=== PATIENT | female | born 1975 | race Caucasian/White ===

== ENCOUNTER 2017-10-21 22:30 | Inpatient (IN) | payer MEDICAID, OTHER ==
--- NOTE | 2017-10-21 23:04 | ED ---
General Adult HPI - General Chief complaint: Psychiatric Symptoms Stated complaint: mental health Time Seen by Provider: 10/21/17 22:40 Source: patient, RN notes reviewed, old records reviewed Mode of arrival: ambulatory Limitations: no limitations - History of Present Illness Initial comments: This is a 42-year-old female to the ER prevention of psychiatric illness. Psychiatric disease. Patient has history of recent anxiety and suicidal thoughts. No drug or alcohol abuse. Patient has never made suicide attempt in the past - Related Data Home Medications Medication Instructions Recorded Confirmed risperiDONE [RisperDAL] 2 mg PO DAILY 05/04/14 09/07/15 Citalopram Hydrobromide [CeleXA] 20 mg PO DAILY 07/02/14 09/07/15 Atorvastatin Calcium [Lipitor] 20 mg PO HS 09/07/15 09/07/15 Previous Rx's Medication Instructions Recorded Ibuprofen [Motrin] 600 mg PO Q8HR PRN #30 tab 02/22/15 Methocarbamol [Robaxin] 500 mg PO TID PRN #15 tab 02/22/15 Cephalexin [Keflex] 500 mg PO Q6HR #28 cap 09/07/15 Fluconazole [Diflucan] 150 mg PO ONCE #2 tab 09/07/15 Allergies Allergy/AdvReac Type Severity Reaction Status Date / Time No Known Allergies Allergy Verified 10/21/17 23:14 Review of Systems ROS Statement: Those systems with pertinent positive or pertinent negative responses have been documented in the HPI. ROS Other: All systems not noted in ROS Statement are negative. Past Medical History Past Medical History: Diabetes Mellitus History of Any Multi-Drug Resistant Organisms: None Reported Past Surgical History: Section Past Psychological History: Depression Smoking Status: Current every day smoker Past Alcohol Use History: Occasional Past Drug Use History: None Reported General Exam Limitations: no limitations General appearance: alert, in no apparent distress Head exam: Present: atraumatic, normocephalic, normal inspection Eye exam: Present: normal appearance, PERRL, EOMI. Absent: scleral icterus, conjunctival injection, periorbital swelling ENT exam: Present: normal exam, mucous membranes moist Neck exam: Present: normal inspection. Absent: tenderness, meningismus, lymphadenopathy Respiratory exam: Present: normal lung sounds bilaterally. Absent: respiratory distress, wheezes, rales, rhonchi, stridor Cardiovascular Exam: Present: regular rate, normal rhythm, normal heart sounds. Absent: systolic murmur, diastolic murmur, rubs, gallop, clicks GI/Abdominal exam: Present: soft, normal bowel sounds. Absent: distended, tenderness, guarding, rebound, rigid Extremities exam: Present: normal inspection, full ROM, normal capillary refill. Absent: tenderness, pedal edema, joint swelling, calf tenderness Back exam: Present: normal inspection Neurological exam: Present: alert, oriented X3, CN II-XII intact Psychiatric exam: Present: normal affect, normal mood Skin exam: Present: warm, dry, intact, normal color. Absent: rash Course Vital Signs 10/21/17 10/22/17 22:32 02:22 Temperature 97.5 F L 98.2 F Pulse Rate 92 83 Respiratory 16 16 Rate Blood Pressure 152/88 112/68 O2 Sat by Pulse 100 99 Oximetry - Reevaluation(s) Reevaluation #1: 10/21/17 23:03 Patient is medically clear for psychiatric evaluation Medical Decision Making - Medical Decision Making 39 female female the ER for evaluation of psychiatric illness, patient be admitted for psychiatric evaluation and treatment - Lab Data Lab Results 10/21/17 10/22/17 Range/Units 22:45 01:17 POC Glucose (mg/dL) 129 H (75-99) mg/dL POC Glu Paleologist ID Abdullahi Vaughan Urine Color Yellow Urine Appearance Cloudy H (Clear) Urine pH 6.0 (5.0-8.0) Ur Specific [place] 1.018 (1.001-1.035) Urine Protein Trace H (Negative) Urine Glucose (UA) Negative (Negative) Urine Ketones Negative (Negative) Urine Blood Trace H (Negative) Urine Nitrite Negative (Negative) Urine Bilirubin Negative (Negative) Urine Urobilinogen <2.0 (<2.0) mg/dL Ur Leukocyte Esterase Negative (Negative) Urine RBC 3 (0-5) /hpf Urine WBC 2 (0-5) /hpf Ur Squamous Epith Cells 13 H (0-4) /hpf Urine Bacteria Rare H (None) /hpf Urine Mucus Rare H (None) /hpf Urine Opiates Screen Not Detected (NotDetected) Ur Oxycodone Screen Not Detected (NotDetected) Urine Methadone Screen Not Detected (NotDetected) Ur Propoxyphene Screen Not Detected (NotDetected) Ur Barbiturates Screen Not Detected (NotDetected) U Tricyclic Antidepress Not Detected (NotDetected) Ur Phencyclidine Scrn Not Detected (NotDetected) Ur Amphetamines Screen Not Detected (NotDetected) U Methamphetamines Scrn Not Detected (NotDetected) U Benzodiazepines Scrn Not Detected (NotDetected) Urine Cocaine Screen Not Detected (NotDetected) U Marijuana (THC) Screen Not Detected (NotDetected) Disposition Clinical Impression: Acute anxiety, Depression, Suicidal ideation Disposition: TRANSFER TO PSYCH HOSP/UNIT Condition: Fair
[2017-10-21 23:07] LABS: Amphetamine Screen,Urine Not Detected (NotDetected); Appearance,Urine Cloudy (Clear); Bacteria,Urine Rare /hpf; Barbiturate Screen,Urine Not Detected (NotDetected); Benzodiazepines Screen,Urine Not Detected (NotDetected); Bilirubin,Urine Negative (Negative); Blood,Urine Trace (Negative); Cocaine Screen,Urine Not Detected (NotDetected); Color,Urine Yellow; Glucose,Urine (UA) Negative (Negative); Ketones,Urine Negative (Negative); Leukocyte Esterase,Urine Negative (Negative); Methadone Screen, Urine Not Detected (NotDetected); Mucus,Urine Rare /hpf; Nitrite,Urine Negative (Negative); Opiate Screen,Urine Not Detected (NotDetected); Oxycodone Screen, Urine Not Detected (NotDetected); Phencyclidine Screen,Urine Not Detected (NotDetected); Protein,Urine Trace (Negative); RBC,Urine 3 /hpf (0-5); Specific Gravity,Urine 1.018 (1.001-1.035); Squamous Epithelial Cell,Urine 13 /hpf (0-4); Tricyclic Antidepressant,Urine Not Detected (NotDetected); Urn Cannabinoid Scrn Not Detected (NotDetected); Urobilinogen,Urine <2.0 mg/dL (<2.0); WBC,Urine 2 /hpf (0-5)
[2017-10-22 01:20] LABS: Glucose,Whole Blood 129 mg/dL (75-99)
[2017-10-22] MEDS ORDERED: MAGNESIUM HYDROXIDE 2,400 MG/10 ML CUP PO PRN (02:15)
[2017-10-22] MEDS ORDERED: LORazepam 1 MG TAB PO PRN (02:15)
[2017-10-22] MEDS ORDERED: MAG HYDROX/AL HYDROX/SIMETH 30 ML CUP PO PRN (02:15)
[2017-10-22 04:04] VITALS: BMI 26.6
[2017-10-22 08:56] LABS: Basophils # (A) 0.1 k/uL (0-0.2); Basophils % (A) 1 %; Eosinophils # (A) 0.3 k/uL (0-0.7); Eosinophils % (A) 3 %; HCT 46.4 % (34.0-46.0); HGB 15.1 gm/dL (11.4-16.0); Lymphocytes # (A) 3.1 k/uL (1.0-4.8); Lymphocytes % (A) 30 %; MCH 29.6 pg (25.0-35.0); MCHC 32.5 g/dL (31.0-37.0); MCV 91.1 fL (80.0-100.0); Mean Platelet Volume 6.4; Monocytes # (A) 0.4 k/uL (0-1.0); Monocytes % (A) 4 %; Neutrophils # (A) 6.1 k/uL (1.3-7.7); Neutrophils % (A) 60 %; Platelet Count 334 k/uL (150-450); RBC 5.09 m/uL (3.80-5.40); RDW 12.7 % (11.5-15.5); WBC 10.1 k/uL (3.8-10.6)
[2017-10-22 09:14] LABS: ALT 38 U/L (9-52); AST 25 U/L (14-36); Albumin 4.3 g/dL (3.5-5.0); Alkaline Phosphatase 87 U/L (38-126); Anion Gap 13 mmol/L; Blood Urea Nitrogen 13 mg/dL (7-17); Calcium 9.7 mg/dL (8.4-10.2); Carbon Dioxide 22 mmol/L (22-30); Chloride 107 mmol/L (98-107); Glucose 132 mg/dL (74-99); Potassium 4.8 mmol/L (3.5-5.1); Sodium 142 mmol/L (137-145); Total Bilirubin 0.3 mg/dL (0.2-1.3); Total Protein 7.4 g/dL (6.3-8.2)
[2017-10-22] MEDS: NICOTINE 14MG/24HR PATCH TRANSDERM SCH (09:41)
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
[2017-10-22] MEDS: metFORMIN 500 MG TAB PO SCH (14:09)
[2017-10-22] MEDS: GLIMEPIRIDE 4 MG TAB PO SCH (14:09)
--- NOTE | 2017-10-22 14:47 | CONS ---
CONSULTATION DATE OF SERVICE: 10/22/2017 REASON FOR CONSULTATION: Advice regarding diabetes mellitus and other medical issues requested by Psychiatry. HISTORY OF PRESENT ILLNESS: This is a 42-year-old woman with a past medical history of diabetes and depression, being for Dr. Almeida in the [facility], was admitted for psychiatric evaluation. There is no chest pain. No palpitations. No history of headache, loss of consciousness. Occasional cough was reported. PAST MEDICAL HISTORY: Diabetes mellitus type 2, history of depression. MEDICATIONS ARE: Vitamin D2 fifty thousand q.30 days, metformin 1000 mg, Motrin 800 mg q.4 p.r.n. , Amaryl 4 mg q.h.s., Lipitor 10 mg daily, Celexa 20 mg daily. ALLERGIES: None. FAMILY HISTORY: No history of heart disease or strokes in family. SOCIAL HISTORY: History of smoking, no history of alcohol. REVIEW OF SYSTEMS: ENT: No diminished vision. CARDIOVASCULAR: No angina. RESPIRATORY: As mentioned earlier. GI: No nausea. : No dysuria. NERVOUS SYSTEM: No numbness, weakness. PHYSICAL EXAMINATION: The patient is alert and oriented x3, Pulse is 83, blood pressure 112/60, respirations 16, temperature 98.2, pulse ox 99% room air. HEENT: Conjunctivae normal. NECK: No jugular venous distension. RESPIRATORY: Breath sounds diminished at the bases, a few scattered rhonchi. No crackles. ABDOMEN: Soft, nontender. No mass palpable. LEGS: No edema, no swelling. NERVOUS SYSTEM: cranial nerves 2-12 intact. no nystagmus, diplopia. no facial deviation. Higher functions as mentioned earlier, moves all 4 limbs, no focal motor or sensory deficits. no signs of cerebellar dysfunction. ALLERGY/IMMUNOLOGY: As mentioned earlier. HEMATOLOGY: No history of anemia. ENDOCRINE: As mentioned earlier. CONSTITUTIONAL: Negative. DERMATOLOGY; Negative: NERVOUS SYSTEM: No numbness or weakness. PSYCHIATRY: As mentioned earlier. LYMPHATICS: O SKIN: No ulcer, rash or bleeding. LABS: WBC 10.1, hemoglobin 15.1 and glucose 132. ASSESSMENT: 1. Depression. 2. Diabetes mellitus type 2. 3. History of nicotine dependence. RECOMMENDATION: In this 42-year-old woman who presented with multiple medical problems, Will monitor the patient closely. Continue with the current management and resume the metformin and the antidiabetic medications. Accu-Cheks a.c. and at bedtime. I would recommend follow the patient closely and recommend close follow up in the outpatient setting. Thank you for letting us participate in care of this patient. SAMREEN / BHAVESH: [id number] / VIVI
[2017-10-22 17:49] LABS: Glucose,Whole Blood 61 mg/dL (75-99)
[2017-10-22 18:05] LABS: Glucose,Whole Blood 85 mg/dL (75-99)
[2017-10-22] MEDS: INSULIN ASPART 100 UNIT/ML 1 ML 10 ML VIAL SQ SCH ×2 (18:12→22:22)
[2017-10-22 20:09] LABS: Glucose,Whole Blood 77 mg/dL (75-99)
[2017-10-22] MEDS: QUEtiapine 100 MG TAB PO SCH (20:53)
[2017-10-23 02:03] LABS: Cholesterol 219 mg/dL (<200); HDL Cholesterol 48 mg/dL (40-60); LDL Cholesterol,Calculated 131 mg/dL (0-99); Triglycerides 198 mg/dL (<150)
[2017-10-23 06:29] LABS: Glucose,Whole Blood 91 mg/dL (75-99)
[2017-10-23] MEDS: INSULIN ASPART 100 UNIT/ML 1 ML 10 ML VIAL SQ SCH ×4 (08:22→20:29)
[2017-10-23] MEDS: NICOTINE 14MG/24HR PATCH TRANSDERM SCH (09:30)
[2017-10-23] MEDS: GLIMEPIRIDE 4 MG TAB PO SCH (09:31)
[2017-10-23] MEDS: ATORVASTATIN 10 MG TAB PO SCH (09:31)
[2017-10-23] MEDS: metFORMIN 500 MG TAB PO SCH (09:31)
[2017-10-23 12:58] LABS: Glucose,Whole Blood 53 mg/dL (75-99)
[2017-10-23 13:16] LABS: Glucose,Whole Blood 101 mg/dL (75-99)
--- NOTE | 2017-10-23 13:24 | PN ---
PROGRESS NOTE DATE OF SERVICE: 10/23/2017 CHIEF COMPLAINT: The patient was admitted due to depression with thoughts of suicide. She stated "I felt like I had a total breakdown". INTERVAL HISTORY: Patient has been doing fairly well. She had a quiet evening last night. She said she slept better. It is noted that yesterday Dr. Hernández documented that the patient was seen in the morning time and she seemed quite distressed, though by the afternoon, the patient was more verbal. She was not showing psychomotor retardation that was evident in the morning. She was responding more appropriately. The patient herself was stating in the afternoon that she felt better and had less depression. She also stated that suicide thinking had abated. She was started on Seroquel. The patient said she slept fairly well last night and needed to get so aroused in the morning in order to wake up. She has not had change in her general health. She tolerates her psychotropic medications. MENTAL STATUS: Patient gave fair eye contact. Psychomotor activity was a little slowed. Speech was somewhat monotone. She answered questions with brief responses. Her thoughts were clear. Her affect was somewhat blunted. Her mood was quiet. She did not appear to be distressed. ASSESSMENT: I will continue the current diagnosis and treatment plan. We will continue to engage the patient in individual and group therapeutic activities. I discussed treatment issues with the patient. She does have long-term problems with mood disorder. They indicated that at some point in the course of her treatment she might look to get started on antidepressant medication. However, given that she seems to be doing better now and has benefited some from the Seroquel, I would continue medications the same without adding an additional medication. If she continues to progress, I would anticipate her being discharged early in the week and then as part of her followup she could be assessed further for antidepressant therapy. We will continue to focus on stabilization and discharge planning. MMODL / IJN: [id number] /
[2017-10-23 17:33] LABS: Glucose,Whole Blood 73 mg/dL (75-99)
[2017-10-23 19:59] LABS: Glucose,Whole Blood 136 mg/dL (75-99)
[2017-10-23] MEDS: QUEtiapine 100 MG TAB PO SCH (20:14)
[2017-10-24 06:12] LABS: Glucose,Whole Blood 109 mg/dL (75-99)
[2017-10-24] MEDS: INSULIN ASPART 100 UNIT/ML 1 ML 10 ML VIAL SQ SCH ×4 (08:10→20:12)
[2017-10-24] MEDS: ATORVASTATIN 10 MG TAB PO SCH (08:38)
[2017-10-24] MEDS: NICOTINE 14MG/24HR PATCH TRANSDERM SCH (08:38)
[2017-10-24] MEDS: metFORMIN 500 MG TAB PO SCH (08:38)
--- NOTE | 2017-10-24 11:12 | P.PN ---
Progress Note - Text Progress Note Date: 10/24/17 Interval history: The patient was seen in the office. She reports that she slept 7-8 hours last night ,denies any side-effect from Seroquel .She reports racing thoughts,""Foggy",poor concentration ,distracted and poor attention span ,she denies any psychotic features ,denies any suicidal or homicidal ideation. She talked about her one and half year relationship as he is 10 years younger than her ,patient stated "I am trying to please people especially my BF but it is not easy",according to her what triggered current admission is some conflict in relationship Mental status exam: The patient is female she is dressed in her own clothing ,fair grooming ,good eyes contact She demonstrates tangential thinking during the course of our session. At other times she is able to provide linear brief answers. She seems having difficulty to maintain attention She demonstrates no verbal or physical aggressiveness no abnormal involuntary movements. Insight and judgment limited. She reports no suicidal or homicidal ideation intent or plan. She is endorsing no auditory or visual hallucinations. Plan: The patient will continue on Seroquel ,discussed possibility to add [place] as patient is still endorsing racing thoughts ,I am reluctant to increase Seroquel as patient is diabetic ,will check her thyroid and renal function She is encouraged to continue complying with the milieu.Sw to assist in after care individual counseling
[2017-10-24 12:57] LABS: Glucose,Whole Blood 90 mg/dL (75-99)
[2017-10-24 17:36] LABS: Glucose,Whole Blood 107 mg/dL (75-99)
[2017-10-24] MEDS: QUEtiapine 100 MG TAB PO SCH (20:11)
[2017-10-24 20:24] LABS: Glucose,Whole Blood 135 mg/dL (75-99)
[2017-10-25] MEDS: ACETAMINOPHEN TAB 325 MG TAB PO PRN ×2 (07:08→19:48)
[2017-10-25 07:18] LABS: Glucose,Whole Blood 106 mg/dL (75-99)
[2017-10-25] MEDS: INSULIN ASPART 100 UNIT/ML 1 ML 10 ML VIAL SQ SCH ×4 (08:20→21:19)
[2017-10-25] MEDS: NICOTINE 14MG/24HR PATCH TRANSDERM SCH (08:21)
[2017-10-25] MEDS: metFORMIN 500 MG TAB PO SCH (08:21)
[2017-10-25] MEDS: ATORVASTATIN 10 MG TAB PO SCH (08:22)
[2017-10-25] MEDS: LITHIUM CARBONATE ER 450 MG TABLET.ER PO SCH (08:22)
[2017-10-25 12:33] LABS: Glucose,Whole Blood 97 mg/dL (75-99)
--- NOTE | 2017-10-25 14:38 | P.PN ---
Progress Note - Text Progress Note Date: 10/25/17 Interval history: The patient was seen in the office. She reports that she slept 7-8 hours last night ,denies any side-effect from Seroquel .She reports racing thoughts,""Foggy",poor concentration ,distracted ,despite she is denying any psychotic features and focussing about discharge patient seems evasive and guarded ,denies any suicidal or homicidal ideation. Per nursing staff:patient is superficial,guarded and evasive Mental status exam: The patient is female she is dressed in her own clothing ,fair grooming ,good eyes contact She demonstrates tangential thinking during the course of our session. At other times she is able to provide linear brief answers. She seems having difficulty to maintain attention She demonstrates no verbal or physical aggressiveness no abnormal involuntary movements. Insight and judgment limited. She reports no suicidal or homicidal ideation intent or plan. She is endorsing no auditory or visual hallucinations. Plan: Increase Seroquel to 150 mg to eliminate her underlying paranoia , continue [place] same dose She is encouraged to continue complying with the milieu.Sw to assist in collateral information and family meeting with patient BF to evaluate patient basic function level
[2017-10-25 17:13] LABS: Glucose,Whole Blood 122 mg/dL (75-99)
[2017-10-25 19:56] LABS: Glucose,Whole Blood 130 mg/dL (75-99)
[2017-10-25] MEDS: QUEtiapine 50 MG TAB PO SCH (21:19)
[2017-10-26 06:31] LABS: Glucose,Whole Blood 116 mg/dL (75-99)
[2017-10-26] MEDS: INSULIN ASPART 100 UNIT/ML 1 ML 10 ML VIAL SQ SCH ×4 (07:36→20:36)
[2017-10-26] MEDS: NICOTINE 14MG/24HR PATCH TRANSDERM SCH (08:38)
[2017-10-26] MEDS: metFORMIN 500 MG TAB PO SCH (08:39)
[2017-10-26] MEDS: LITHIUM CARBONATE ER 450 MG TABLET.ER PO SCH ×2 (08:39→21:11)
[2017-10-26] MEDS: ATORVASTATIN 10 MG TAB PO SCH (08:39)
--- NOTE | 2017-10-26 12:42 | P.PN ---
Progress Note - Text Progress Note Date: 10/26/17 Interval History: Patient is a 42-year-old female who was seen today and states that she had signed her three-day notice because she feels she is doing well. Patient reports she is no longer depressed and has no current suicidal thoughts. She states she slept 7 hours last night. Patient states that she is no longer having racing thoughts and feels she is doing well. Patient reported no complaints of side effects from her medication and stated that she had taken the lithium and had no difficulty with. Mental Status: Appearance/Attitude: Patient was appropriately dressed, made good eye contact and was cooperative. Behavior: Patient did not display any psychomotor agitation or retardation. Speech/Language: Patient's speech was spontaneous and normal volume and rhythm and she was coherent. Thought Process: Patient was goal-directed, there is no evidence of loose association or flight of ideas and the patient denied she was having racing thoughts. Thought Content: Patient denied auditory or visual hallucinations and no paranoid or delusional ideation was elicited. Patient did report however that she still is having trouble focusing and paying attention but stated she slept 7 hours last night. She states that she wants to leave the hospital because she is returned to her baseline. She reports that she is eating well. Suicidal/Homicidal Ideation: Patient denied any current suicidal or homicidal ideation. Sensorium/Cognition: Patient is alert and oriented to person, place, and time and her recent and remote memory were grossly intact. Patient reported that she still had difficulty focusing and paying attention. Mood/Affect: Patient's mood is not labile and her affect was appropriate Insight/Judgment: Patient's insight and judgment are fair Assessment: Patient was begun on lithium and continued on Seroquel 150 mg at bedtime and she reports no side effects from the medication. She reported she was sleeping well and that her mood was more stable but she continued to have difficulty focusing and concentrating. She denied that her thoughts were racing. Patient states she signed the three-day notice because she is ready to leave the hospital. Plan: Patient and I discussed that her lithium needs to be increased to 4 and 50 mg twice a day for it to be even minimally effective, as well as continue on Seroquel 1 or 50 mg at bedtime to stabilize her mood. The patient was agreeable to retracting her three-day notice and she said she would consider doing so. Patient and I discussed increasing her lithium to target her lack of concentration and focus. Patient and I discussed discharge in the next several days and a lithium level will be obtained.
[2017-10-26 12:52] LABS: Glucose,Whole Blood 96 mg/dL (75-99)
[2017-10-26 17:45] LABS: Glucose,Whole Blood 97 mg/dL (75-99)
[2017-10-26 20:14] LABS: Glucose,Whole Blood 149 mg/dL (75-99)
[2017-10-26] MEDS: QUEtiapine 50 MG TAB PO SCH (21:08)
[2017-10-27 06:31] LABS: Glucose,Whole Blood 123 mg/dL (75-99)
[2017-10-27 06:48] VITALS: BP 111/57; PULSE 71; RESP 14; TEMP 98.6
[2017-10-27] MEDS: INSULIN ASPART 100 UNIT/ML 1 ML 10 ML VIAL SQ SCH (07:31)
[2017-10-27] MEDS: metFORMIN 500 MG TAB PO SCH (08:02)
[2017-10-27] MEDS: ATORVASTATIN 10 MG TAB PO SCH (08:02)
[2017-10-27] MEDS: LITHIUM CARBONATE ER 450 MG TABLET.ER PO SCH (08:03)
[2017-10-27] MEDS: NICOTINE 14MG/24HR PATCH TRANSDERM SCH (08:03)
--- NOTE | 2017-10-27 11:04 | P.DS ---
Providers Date of admission: 10/22/17 02:13 Expected date of discharge: 10/27/17 Attending physician: Shea Hernández MD Consults: 10/22/17 02:15 Consult Physician Routine Consulting Provider: Gabe Nichole Consult Reason/Comments: medical management Do you want consulting provider notified?: Yes, Notify in am Primary care physician: Joanne [facility], [place] Course: Discharge Diagnosis: Bipolar disorder type I, current episode depressed with rapid cycling Reason for Admission: Patient is a 42-year-old female who presented to the emergency room with her family yesterday secondary to increasing depression and suicidal ideation without a plan. Patient states that she "felt like I had a total breakdown, I was crying". Patient states that she's been attending the [facility] and they've been prescribing Celexa 20 mg and Risperdal 2 mg at bedtime and she states that she has been taking these on and off. She states she last took the Celexa several weeks ago and was on it for perhaps a month at a minimum. She discontinued her Risperdal months ago because it was making her sleepy. Patient states that yesterday in the emergency room she was feeling depressed, and states that currently she is feeling much better. In the emergency room the patient was described with psychomotor retardation difficulty responding to questions today she is not showing any evidence of that. Patient states that she was unable to focus when she was in the emergency room and could not respond to questions. Patient currently states that she is feeling much better and no longer having suicidal thoughts. Patient reports problems sleeping prior to coming into the hospital and states she was having suicidal thoughts but had no plan or intent to act. Patient endorses a history of difficulties since the age of 22 and feels that her first treatment was 20 years ago. Patient has had 3 prior admissions here the last being in 2010. Patient was attending [facility] but since 2013 she reports she has been getting her medications from the [facility]. Patient is able to endorse episodes of reid in the past with driving erratically, decreased need for sleep with increased energy as well as racing thoughts, jumping from one idea to another, being impulsive with her use of money and an increased interest in sex she says that this alternates with periods of depression where she has difficulty sleeping and feeling tired unable to focus suicidal ideation and a lack of interest in her activities of daily living. Patient states that these moods flip-flop quite rapidly and states that yesterday she was feeling depressed and now she is feeling fine. Patient has not been compliant with medication and states that she takes the medicines on and off. Patient states that she doesn't think the medications were working but it is difficult to state if they were not as the patient has not been compliant for quite some time. Patient denies any prior history of auditory or visual hallucinations and denies any prior paranoid ideation. Patient currently states she starting to feel better no longer feeling as depressed and states that she is able to focus much better area she states that she slept fairly well here last evening. She reports that she is no longer feeling suicidal. Mental status on Admission: Appearance/Attitude: Patient is appropriately dressed, makes good eye contact and was cooperative. Behavior: Patient did not display any psychomotor agitation or retardation and occasionally during the interview would laugh and smile. Speech/Language: Patient's speech was spontaneous, of normal volume and rhythm and she was coherent Thought Process: Patient is goal-directed there is no evidence of loose association or flight of ideas and no evidence of thought blocking Thought Content: Patient denied auditory or visual hallucinations and no paranoid or delusional ideation was elicited. Patient states that she's been having trouble sleeping and has been feeling depressed and unable to focus or care for her ADLs. Patient states that she was having crying spells before coming to the emergency room and describes herself as having a breakdown. She states currently she is feeling much better. Patient reports that her appetite is good. Suicidal/Homicidal Ideation: Patient denies any current suicidal or homicidal ideation. Sensorium/Cognition: Patient is alert and oriented to person, place, and time and her recent and remote memory are grossly intact. Mood/Affect: Patient's mood is labile, she was quite pleasant and laughing at during the interview and reported her mood is much improved over yesterday when she was feeling depressed and tearful, her affect is appropriate to her mood Insight/Judgment: Patient's insight and judgment are fair Hospital Course: Patient was admitted as a voluntary patient, routine laboratory studies and medical consultation were obtained. The patient also was ordered group and activity therapy as well as placed on routine observation. Patient was observed to be psychomotor retarded to some degree on admission and depressed later when I interviewed her, the patient reported that her mood had improved, she was having racing thoughts and she states that she cycles between depression and manic symptoms. Patient and I discussed her medications and she reported a good response to Seroquel in the past and wish to retry this and so was begun on Seroquel titrated to a dose of 150 mg at bedtime. Patient was also started on lithium which was titrated to a dose of 450 mg twice a day. Patient reported that she was improving and noticed that her mood was stabilizing and she was no longer going between feeling depressed and feeling manic. Patient was not restarted on any antidepressants to prevent the rapid cycling that she had been experiencing. She reported she was sleeping well and eating well. A she and states that her thoughts were organized and she was no longer having racing thoughts. Patient reported no side effects from the medication and felt that she was stable to return home. Patient was also maintained on her medications for her diabetes as well as her Lipitor. Her lithium level on 450 mg twice a day was 0.5. Allergies No Known Allergies Allergy (Verified 10/22/17 08:58) Laboratory Last Values WBC 10.1 k/uL (3.8-10.6) 10/22/17 08:34 RBC 5.09 m/uL (3.80-5.40) 10/22/17 08:34 Hgb 15.1 gm/dL (11.4-16.0) 10/22/17 08:34 Hct 46.4 % (34.0-46.0) H 10/22/17 08:34 MCV 91.1 fL (80.0-100.0) 10/22/17 08:34 MCH 29.6 pg (25.0-35.0) 10/22/17 08:34 MCHC 32.5 g/dL (31.0-37.0) 10/22/17 08:34 RDW 12.7 % (11.5-15.5) 10/22/17 08:34 Plt Count 334 k/uL (150-450) 10/22/17 08:34 Neutrophils % 60 % 10/22/17 08:34 Lymphocytes % 30 % 10/22/17 08:34 Monocytes % 4 % 10/22/17 08:34 Eosinophils % 3 % 10/22/17 08:34 Basophils % 1 % 10/22/17 08:34 Neutrophils # 6.1 k/uL (1.3-7.7) 10/22/17 08:34 Lymphocytes # 3.1 k/uL (1.0-4.8) 10/22/17 08:34 Monocytes # 0.4 k/uL (0-1.0) 10/22/17 08:34 Eosinophils # 0.3 k/uL (0-0.7) 10/22/17 08:34 Basophils # 0.1 k/uL (0-0.2) 10/22/17 08:34 Sodium 142 mmol/L (137-145) 10/22/17 08:34 Potassium 4.8 mmol/L (3.5-5.1) 10/22/17 08:34 Chloride 107 mmol/L (98-107) 10/22/17 08:34 Carbon Dioxide 22 mmol/L (22-30) 10/22/17 08:34 Anion Gap 13 mmol/L 10/22/17 08:34 BUN 13 mg/dL (7-17) 10/22/17 08:34 Creatinine 0.60 mg/dL (0.52-1.04) 10/22/17 08:34 Est GFR (MDRD) Af Amer >60 (>60 ml/min/1.73 sqM) 10/22/17 08:34 Est GFR (MDRD) Non-Af >60 (>60 ml/min/1.73 sqM) 10/22/17 08:34 Glucose 132 mg/dL (74-99) H 10/22/17 08:34 POC Glucose (mg/dL) 123 mg/dL (75-99) H 10/27/17 06:30 POC Glu [facility] Outreach Specialist ID Brian Felder 10/27/17 06:[address] Glu mg/dL 126 10/22/17 08:34 Hemoglobin A1c 6.0 % (4.0-6.0) 10/22/17 08:34 Calcium 9.7 mg/dL (8.4-10.2) 10/22/17 08:34 Total Bilirubin 0.3 mg/dL (0.2-1.3) 10/22/17 08:34 AST 25 U/L (14-36) 10/22/17 08:34 ALT 38 U/L (9-52) 10/22/17 08:34 Alkaline Phosphatase 87 U/L (38-126) 10/22/17 08:34 Total Protein 7.4 g/dL (6.3-8.2) 10/22/17 08:34 Albumin 4.3 g/dL (3.5-5.0) 10/22/17 08:34 Triglycerides 198 mg/dL (<150) H 10/22/17 08:34 Cholesterol 219 mg/dL (<200) H 10/22/17 08:34 LDL Cholesterol, Calc 131 mg/dL (0-99) H 10/22/17 08:34 HDL Cholesterol 48 mg/dL (40-60) 10/22/17 08:34 TSH 1.500 mIU/L (0.465-4.680) 10/22/17 08:34 Urine Color Yellow 10/21/17 22:45 Urine Appearance Cloudy (Clear) H 10/21/17 22:45 Urine pH 6.0 (5.0-8.0) 10/21/17 22:45 Ur Specific [place] 1.018 (1.001-1.035) 10/21/17 22:45 Urine Protein Trace (Negative) H 10/21/17 22:45 Urine Glucose (UA) Negative (Negative) 10/21/17 22:45 Urine Ketones Negative (Negative) 10/21/17 22:45 Urine Blood Trace (Negative) H 10/21/17 22:45 Urine Nitrite Negative (Negative) 10/21/17 22:45 Urine Bilirubin Negative (Negative) 10/21/17 22:45 Urine Urobilinogen <2.0 mg/dL (<2.0) 10/21/17 22:45 Ur Leukocyte Esterase Negative (Negative) 10/21/17 22:45 Urine RBC 3 /hpf (0-5) 10/21/17 22:45 Urine WBC 2 /hpf (0-5) 10/21/17 22:45 Ur Squamous Epith Cells 13 /hpf (0-4) H 10/21/17 22:45 Urine Bacteria Rare /hpf (None) H 10/21/17 22:45 Urine Mucus Rare /hpf (None) H 10/21/17 22:45 Urine Opiates Screen Not Detected (NotDetected) 10/21/17 22:45 Ur Oxycodone Screen Not Detected (NotDetected) 10/21/17 22:45 Urine Methadone Screen Not Detected (NotDetected) 10/21/17 22:45 Ur Propoxyphene Screen Not Detected (NotDetected) 10/21/17 22:45 Ur Barbiturates Screen Not Detected (NotDetected) 10/21/17 22:45 U Tricyclic Antidepress Not Detected (NotDetected) 10/21/17 22:45 Ur Phencyclidine Scrn Not Detected (NotDetected) 10/21/17 22:45 Ur Amphetamines Screen Not Detected (NotDetected) 10/21/17 22:45 U Methamphetamines Scrn Not Detected (NotDetected) 10/21/17 22:45 U Benzodiazepines Scrn Not Detected (NotDetected) 10/21/17 22:45 [place] 0.5 mmol/L 10/27/17 08:30 Urine Cocaine Screen Not Detected (NotDetected) 10/21/17 22:45 U Marijuana (THC) Screen Not Detected (NotDetected) 10/21/17 22:45 Discharge Mental Status: Appearance/Attitude: Patient was appropriately dressed and groomed, made good eye contact and was cooperative. Behavior: Patient did not display any psychomotor agitation or retardation. Speech/Language: Patient's speech was spontaneous and of normal volume and rhythm and she was coherent Thought Process: Patient was goal-directed there is no evidence of loose association or flight of ideas and she denied racing thoughts. Thought Content: Patient denied auditory or visual hallucinations and no delusions or paranoid ideation were elicited. Patient states that she is no longer having racing thoughts, states that she feels more organized and is not having difficulty responding to questions. Patient states that she slept about 7 hours last night and her appetite is good. She reported no side effects from the medication. Suicidal/Homicidal Ideation: Patient denied current suicidal or homicidal ideation. Sensorium/Cognition: Patient is alert and oriented to person, place, time and her recent and remote memory were grossly intact. Patient states that she is able to focus and concentrate without difficulty. Mood/Affect: Patient reports her mood is stable and euthymic and her affect is appropriate. Insight/Judgment: Patient's insight and judgment are fair. Risk Assessment: Patient's risk for self harm is low Discharge Plan: Patient will return home to live with her mother and daughter, she is looking for work. Patient will continue on Seroquel 150 mg at bedtime and lithium 450 mg twice a day with a serum level of 0.5. Patient and I discussed the side effects of lithium, symptoms of lithium toxicity and she was encouraged to be compliant with her medications. Patient was also encouraged to be compliant with follow-up treatment at [facility]. Patient will also follow-up with primary care physician regarding her medical problems. Patient Condition at Discharge: Stable Plan - Discharge Summary Discharge Rx Participant: No New Discharge Prescriptions: New [place] Carbonate ER [Lithobid] 450 mg PO BID #28 tablet.er Nicotine 14Mg/24Hr Patch [Habitrol] 1 patch TRANSDERM DAILY #28 patch QUEtiapine FUMARATE [SEROquel] 150 mg PO HS #7 tab Continue Ergocalciferol [Vitamin D2 (DRISDOL)] 50,000 unit PO Q30D metFORMIN HCL 1,000 mg PO DAILY Ibuprofen [Motrin] 800 mg PO QID PRN PRN Reason: Pain Atorvastatin [Lipitor] 10 mg PO DAILY #14 tab Glimepiride [Amaryl] 4 mg PO AC-BRKFST #14 tab Discontinued Citalopram Hydrobromide [CeleXA] 20 mg PO DAILY Discharge Medication List Ergocalciferol [Vitamin D2 (DRISDOL)] 50,000 unit PO Q30D 10/22/17 [History] Ibuprofen [Motrin] 800 mg PO QID PRN 10/22/17 [History] metFORMIN HCL 1,000 mg PO DAILY 10/22/17 [History] Atorvastatin [Lipitor] 10 mg PO DAILY #14 tab 10/27/17 [Rx] Glimepiride [Amaryl] 4 mg PO AC-BRKFST #14 tab 10/27/17 [Rx] [place] Carbonate ER [Lithobid] 450 mg PO BID #28 tablet.er 10/27/17 [Rx] Nicotine 14Mg/24Hr Patch [Habitrol] 1 patch TRANSDERM DAILY #28 patch 10/27/17 [ Rx] QUEtiapine FUMARATE [SEROquel] 150 mg PO HS #7 tab 10/27/17 [Rx] Follow up Appointment(s)/Referral(s): [facility] [Outside] - 1 Week (Please complete walk-in intake within 48 hours of hospital discharge. Hours: Tu- 1030-5 Wed, - 830-3) Joanne Almeida MD [Primary Care Provider] - 1-2 days Patient Instructions/Handouts: Depression (GEN), Suicide Prevention for Adults (GEN), Anxiety (GEN) Activity/Diet/Wound Care/Special Instructions: Activity and diet as tolerated. Avoid the use of street drugs and alcohol. Take all medications as prescribed. When you are in need of refills on your medications please contact your medical provider and/or outpatient psychiatrist to have this done. Please go to scheduled outpatient appointment for aftercare treatment. If symptoms return or become worse call the crisis line at [phone] and/or go to the nearest emergency room for an evaluation.
[2017-11-04] MEDS ORDERED: ERGOCALCIFEROL 50,000 UNIT CAP PO SCH (09:00)
== END 2017-10-27 12:53 | disposition home or self-care (01) | DRG 885 ==
LOC: EC 22:30 → 3MHU 10-22 02:13
PROVIDERS: ADMIT Psychiatry & Neurology Psychiatry; ATTEND Psychiatry & Neurology Psychiatry
DX: F31.9 Bipolar disorder, unspecified (principal); E11.9 Type 2 diabetes mellitus without complications; E78.5 Hyperlipidemia, unspecified; F17.200 Nicotine dependence, unspecified, uncomplicated; F41.9 Anxiety disorder, unspecified; Z79.899 Other long term (current) drug therapy; Z91.14 Patient's other noncompliance with medication regimen; Z79.84 Long term (current) use of oral hypoglycemic drugs
CPT/HCPCS: 36415; 80053; 80061; 80178; 80306; 81001; 82075; 83036; 84443; 85025; 99285

== ENCOUNTER 2018-01-31 05:21 | Emergency (ER) | payer MEDICAID, OTHER ==
[2018-01-31 05:38] VITALS: BP 123/59; PULSE 92; RESP 20; TEMP 98.9
--- NOTE | 2018-01-31 06:00 | ED ---
ENT HPI - General Chief complaint: Dental/Oral Stated complaint: Dental Pain Time Seen by Provider: 01/31/18 05:44 Source: patient Mode of arrival: ambulatory Limitations: no limitations - History of Present Illness Initial comments: 's patient is a 42-year-old woman who presents with right mandibular dental pain that is been going on for she believes a bit over a week. She states that she called her dentist but will not be seen there until the following week. She states she has tried Tylenol which is only giving a little bit of relief. The patient denies any difficulty with breathing or any difficulty with swallowing. She also has noted a little bit of swelling adjacent to the mandible. No neck pain. MD complaint: tooth pain Onset/Timin -: week(s) Location: other (Right mandibular) Severity: severe Quality: aching Consistency: constant Improves with: none Worsens with: eating Context-Epistaxis: history of similar Context- Dental: history of dental caries - Related Data Home Medications Medication Instructions Recorded Confirmed Citalopram Hydrobromide [CeleXA] 20 mg PO DAILY 01/31/18 01/31/18 risperiDONE [RisperDAL] 2 mg PO DAILY 01/31/18 01/31/18 Previous Rx's Medication Instructions Recorded Acetaminophen-Codeine 300-30mg 1 tab PO Q4H PRN #15 tablet 01/31/18 [Tylenol w/codeine #3] Ibuprofen [Motrin] 600 mg PO Q8HR PRN #20 tab 01/31/18 Penicillin V Potassium [Pen Vee K] 500 mg PO QID #28 tablet 01/31/18 Allergies Allergy/AdvReac Type Severity Reaction Status Date / Time No Known Allergies Allergy Verified 10/22/17 08:58 Review of Systems ROS Statement: Those systems with pertinent positive or pertinent negative responses have been documented in the HPI. ROS Other: All systems not noted in ROS Statement are negative. Constitutional: Denies: fever, chills Eyes: Denies: eye pain, vision change ENT: Denies: ear pain, throat pain, hearing loss Respiratory: Denies: cough, dyspnea Cardiovascular: Denies: chest pain, palpitations Skin: Denies: rash Neurological: Denies: headache Past Medical History Past Medical History: Diabetes Mellitus History of Any Multi-Drug Resistant Organisms: None Reported Past Surgical History: Section Past Psychological History: Depression Smoking Status: Current every day smoker Past Alcohol Use History: Rare Past Drug Use History: None Reported General Exam Limitations: no limitations General appearance: alert, in no apparent distress Head exam: Present: atraumatic, normocephalic Eye exam: Present: normal appearance, PERRL, EOMI. Absent: scleral icterus, conjunctival injection, nystagmus ENT exam: Present: mucous membranes moist, other (Dental caries. Small amount of swelling adjacent to the right mandibular. There is no definite abscess. There is no sign or symptom of [place] angina) Neck exam: Present: normal inspection, full ROM, other (No neck fullness. ). Absent: tenderness, meningismus, lymphadenopathy Respiratory exam: Present: normal lung sounds bilaterally. Absent: respiratory distress, wheezes, rales, rhonchi, stridor Cardiovascular Exam: Present: regular rate, normal rhythm, normal heart sounds. Absent: systolic murmur, diastolic murmur, rubs, gallop Neurological exam: Present: alert Skin exam: Present: warm, dry, intact, normal color. Absent: rash Course Vital Signs 01/31/18 05:34 Temperature 98.9 F Pulse Rate 92 Respiratory 20 Rate Blood Pressure 123/59 O2 Sat by Pulse 96 Oximetry Disposition Clinical Impression: Toothache, Dental caries Disposition: HOME SELF-CARE Condition: Good Instructions: Dental Caries (ED), Toothache (ED) Prescriptions: Acetaminophen-Codeine 300-30mg [Tylenol w/codeine #3] 1 tab PO Q4H PRN #15 tablet PRN Reason: Pain Ibuprofen [Motrin] 600 mg PO Q8HR PRN #20 tab PRN Reason: Pain Penicillin V Potassium [Pen Vee K] 500 mg PO QID #28 tablet Is patient prescribed a controlled substance at d/c from ED?: Yes When asked, does pt state using other controlled substances?: No If prescribed controlled substance>3 days was MAPS reviewed?: Prescribed <3 Days If opioid is for acute pain is fill amount 7 days or less?: Yes If Rx opioid, was Start Talking consent form obtained?: Yes Referrals: Branden Caro MD [Primary Care Provider] - 1-2 days
[2018-01-31] MEDS ORDERED: PENICILLIN V POTASSIUM 250 MG TAB PO STA (06:02)
[2018-01-31] MEDS ORDERED: IBUPROFEN 600 MG TAB PO STA (06:02)
== END 2018-01-31 06:35 | disposition home or self-care (01) ==
LOC: EC 05:21
DX: K02.9 Dental caries, unspecified (principal); F32.9 Major depressive disorder, single episode, unspecified; F17.200 Nicotine dependence, unspecified, uncomplicated; Z79.899 Other long term (current) drug therapy
CPT/HCPCS: 99282

== ENCOUNTER 2018-03-14 20:15 | Emergency (ER) | payer OTHER ==
[2018-03-14 20:39] VITALS: BP 121/72; PULSE 87; RESP 16; TEMP 98.4
[2018-03-14 21:17] LABS: Appearance,Urine Cloudy (Clear); Bacteria,Urine Rare /hpf; Bilirubin,Urine Negative (Negative); Blood,Urine Moderate (Negative); Color,Urine Yellow; Glucose,Urine (UA) Trace (Negative); Ketones,Urine Trace (Negative); Leukocyte Esterase,Urine Large (Negative); Mucus,Urine Rare /hpf; Nitrite,Urine Negative (Negative); Protein,Urine 1+ (Negative); RBC,Urine 58 /hpf (0-5); Specific Gravity,Urine 1.022 (1.001-1.035); Squamous Epithelial Cell,Urine 5 /hpf (0-4); WBC,Urine >182 /hpf (0-5)
--- NOTE | 2018-03-14 21:54 | ED ---
Recheck HPI - General Chief Complaint: Recheck/Abnormal Lab/Rx Stated Complaint: poss kidney infection Time Seen by Provider: 03/14/18 20:45 Source: patient, RN notes reviewed, old records reviewed Mode of arrival: ambulatory Limitations: no limitations - History of Present Illness Initial Comments: 42-year-old female presents emergency Department chief complaint of medication refill and dysuria. She reports dysuria for the past few days. Denies any back pain. No fevers or chills. Patient had no specific abdominal pain. Patient reports she's had history of UTIs in the past and she's been having dysuria feel similar to previous UTIs. She also states that she's been out of her medication for 1 week. She takes Adderall Celexa and Seroquel. - Related Data Home Medications Medication Instructions Recorded Confirmed Citalopram Hydrobromide [CeleXA] 20 mg PO DAILY 01/31/18 03/14/18 risperiDONE [RisperDAL] 2 mg PO DAILY 01/31/18 03/14/18 Previous Rx's Medication Instructions Recorded Ciprofloxacin HCl [Cipro] 500 mg PO Q12HR 7 Days tab 03/14/18 Citalopram Hydrobromide [CeleXA] 20 mg PO DAILY #7 tablet 03/14/18 risperiDONE [RisperDAL] 2 mg PO DAILY #5 tab 03/14/18 Allergies Allergy/AdvReac Type Severity Reaction Status Date / Time No Known Allergies Allergy Verified 03/14/18 20:39 Review of Systems ROS Statement: Those systems with pertinent positive or pertinent negative responses have been documented in the HPI. ROS Other: All systems not noted in ROS Statement are negative. Past Medical History Past Medical History: Diabetes Mellitus History of Any Multi-Drug Resistant Organisms: None Reported Past Surgical History: Section Past Psychological History: Depression Smoking Status: Current every day smoker Past Alcohol Use History: Rare Past Drug Use History: None Reported General Exam - General Exam Comments Initial Comments: Well-appearing 42-year-old female. Alert and oriented. No significant distress. General: Well appearing, well nourished, in no distress. Oriented x 3, normal mood, flat affect. Ambulating without difficulty. Skin: Good turgor, no rash, unusual bruising or prominent lesions Hair: Normal texture and distribution. HEENT: Head: Normocephalic, atraumatic, no visible or palpable masses, depressions, or scaring. Eyes: Visual acuity intact, conjunctiva clear, sclera non-icteric, EOM intact, PERRL. Ears: EACs clear, TMs translucent & cone of light visualized. hearing intact. Nose: No external lesions, mucosa non-inflamed, septum and turbinates normal Mouth: Mucous membranes moist, no mucosal lesions. Teeth/Gums: No obvious caries or periodontal disease. No gingival inflammation or significant resorption. Pharynx: Mucosa non-inflamed, no tonsillar hypertrophy or exudate Neck: Supple, without lesions, bruits, or adenopathy, thyroid non-enlarged and non-tender Heart: No cardiomegaly or thrills; regular rate and rhythm, no murmur or gallop Lungs: Clear to auscultation and percussion Abdomen: Bowel sounds normal, no tenderness, organomegaly, masses, or hernia Back: Spine normal without deformity or tenderness, no CVA tenderness Extremities: No amputations or deformities, cyanosis, edema or varicosities, peripheral pulses intact Musculoskeletal: Normal gait and station. No misalignment, asymmetry, crepitation, defects, tenderness, masses, effusions, decreased range of motion, instability, atrophy or abnormal strength or tone in the head, neck, spine, ribs , pelvis or extremities. Neurologic: CN 2-12 normal. Sensation to pain, touch, and proprioception normal. DTRs normal in upper and lower extremities. No pathologic reflexes. Psychiatric: Oriented X3, has a flat affect. Limitations: no limitations Course Vital Signs 03/14/18 20:33 Temperature 98.4 F Pulse Rate 87 Respiratory 16 Rate Blood Pressure 121/72 O2 Sat by Pulse 97 Oximetry Medical Decision Making - Medical Decision Making [id number] female presents emergency room with dysuria and complains of needing a medication refill. Patient's urinalysis positive worsening infection. No CVA tenderness. Vital signs are stable. The simultaneous the Patient out patiently for cystitis. I also will give her referral for a few days of Celexa and risperidone. I discussed on refill her Adderall she receives as control substance from PCP. Patient agrees. All questions answered return parameters were discussed. - Lab Data Lab Results 03/14/18 Range/Units 20:53 Urine Color Yellow Urine Appearance Cloudy H (Clear) Urine pH 6.0 (5.0-8.0) Ur Specific [place] 1.022 (1.001-1.035) Urine Protein 1+ H (Negative) Urine Glucose (UA) Trace H (Negative) Urine Ketones Trace H (Negative) Urine Blood Moderate H (Negative) Urine Nitrite Negative (Negative) Urine Bilirubin Negative (Negative) Urine Urobilinogen 2.0 (<2.0) mg/dL Ur Leukocyte Esterase Large H (Negative) Urine RBC 58 H (0-5) /hpf Urine WBC >182 H (0-5) /hpf Ur Squamous Epith Cells 5 H (0-4) /hpf Urine Bacteria Rare H (None) /hpf Urine Mucus Rare H (None) /hpf Disposition Clinical Impression: UTI (urinary tract infection), Medication refill Disposition: HOME SELF-CARE Condition: Good Instructions: Dysuria (ED), Medicine Refill (ED) Additional Instructions: Patient is follow-up with primary care physician for prescription for Adderall. Call tomorrow for further refills. Take antibiotics as prescribed. Prescriptions: Ciprofloxacin HCl [Cipro] 500 mg PO Q12HR 7 Days tab Citalopram Hydrobromide [CeleXA] 20 mg PO DAILY #7 tablet risperiDONE [RisperDAL] 2 mg PO DAILY #5 tab Is patient prescribed a controlled substance at d/c from ED?: Yes When asked, does pt state using other controlled substances?: No If prescribed controlled substance>3 days was MAPS reviewed?: Prescribed <3 Days If opioid is for acute pain is fill amount 7 days or less?: No If Rx opioid, was Start Talking consent form obtained?: No Referrals: Branden Caro MD [Primary Care Provider] - 1-2 days Time of Disposition: 21:54
[2018-03-14] MEDS ORDERED: CIPROFLOXACIN HCL 500 MG TAB PO STA (22:02)
== END 2018-03-14 22:12 | disposition home or self-care (01) ==
LOC: EC 20:15
DX: N39.0 Urinary tract infection, site not specified (principal); Z76.0 Encounter for issue of repeat prescription; F32.9 Major depressive disorder, single episode, unspecified; F17.200 Nicotine dependence, unspecified, uncomplicated; Z79.899 Other long term (current) drug therapy
CPT/HCPCS: 81001; 87086; 99284

== ENCOUNTER 2018-07-28 14:29 | Inpatient (IN) | payer OTHER ==
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
--- NOTE | 2018-07-28 15:15 | XR ---
EXAMINATION TYPE: XR chest 1V portable DATE OF EXAM: 07/28/2018 COMPARISON: NONE HISTORY: Chest pain TECHNIQUE: Single frontal view of the chest is obtained. FINDINGS: Patchy left perihilar density may reflect pneumonic infiltrate. Correlate clinically. The cardiac silhouette size is within normal limits. The osseous structures are intact. IMPRESSION: 1. Patchy left perihilar density may reflect pneumonic infiltrate. Correlate clinically.
[2018-07-28 16:21] LABS: ALT 20 U/L (9-52); AST 20 U/L (14-36); Albumin 3.7 g/dL (3.5-5.0); Alkaline Phosphatase 75 U/L (38-126); Anion Gap 10 mmol/L; Blood Urea Nitrogen 9 mg/dL (7-17); Calcium 9.2 mg/dL (8.4-10.2); Carbon Dioxide 22 mmol/L (22-30); Chloride 109 mmol/L (98-107); Glucose 118 mg/dL (74-99); Potassium 4.2 mmol/L (3.5-5.1); Sodium 141 mmol/L (137-145); Total Bilirubin 0.3 mg/dL (0.2-1.3); Total Protein 6.5 g/dL (6.3-8.2)
[2018-07-28 16:22] LABS: Basophils # (A) 0.1 k/uL (0-0.2); Basophils % (A) 1 %; Eosinophils # (A) 0.2 k/uL (0-0.7); Eosinophils % (A) 1 %; HCT 42.7 % (34.0-46.0); HGB 14.1 gm/dL (11.4-16.0); Lymphocytes # (A) 3.3 k/uL (1.0-4.8); Lymphocytes % (A) 25 %; MCHC 32.9 g/dL (31.0-37.0); MCV 88.1 fL (80.0-100.0); Mean Platelet Volume 6.5; Monocytes # (A) 0.6 k/uL (0-1.0); Monocytes % (A) 5 %; Neutrophils # (A) 8.7 k/uL (1.3-7.7); Neutrophils % (A) 67 %; Platelet Count 287 k/uL (150-450); RBC 4.85 m/uL (3.80-5.40); WBC 13.1 k/uL (3.8-10.6)
[2018-07-28 16:41] LABS: Amphetamine Screen,Urine Not Detected (NotDetected); Barbiturate Screen,Urine Not Detected (NotDetected); Benzodiazepines Screen,Urine Not Detected (NotDetected); Cocaine Screen,Urine Not Detected (NotDetected); Methadone Screen, Urine Not Detected (NotDetected); Opiate Screen,Urine Not Detected (NotDetected); Oxycodone Screen, Urine Not Detected (NotDetected); Phencyclidine Screen,Urine Not Detected (NotDetected); Tricyclic Antidepressant,Urine Not Detected (NotDetected); Urn Cannabinoid Scrn Not Detected (NotDetected)
[2018-07-28 16:52] LABS: Appearance,Urine Clear (Clear); Bilirubin,Urine Negative (Negative); Blood,Urine Negative (Negative); Color,Urine Light Yellow; Glucose,Urine (UA) Negative (Negative); Ketones,Urine Negative (Negative); Leukocyte Esterase,Urine Negative (Negative); Nitrite,Urine Negative (Negative); PH, Urine 6.5 (5.0-8.0); Protein,Urine Negative (Negative); Urobilinogen,Urine <2.0 mg/dL (<2.0)
[2018-07-28] MEDS ORDERED: ACETAMINOPHEN TAB 325 MG TAB PO PRN (18:11)
[2018-07-28] MEDS ORDERED: MAG HYDROX/AL HYDROX/SIMETH 30 ML CUP PO PRN (18:11)
[2018-07-28] MEDS ORDERED: LORazepam 1 MG TAB PO PRN (18:11)
[2018-07-28] MEDS ORDERED: ZIPRASIDONE 20 MG VIAL IM PRN (18:11)
[2018-07-28] MEDS ORDERED: MAGNESIUM HYDROXIDE 2,400 MG/10 ML CUP PO PRN (18:11)
[2018-07-28 18:39] VITALS: BMI 27.5
[2018-07-28] MEDS: NICOTINE 14MG/24HR PATCH TRANSDERM SCH (20:36)
[2018-07-29] MEDS: NICOTINE 14MG/24HR PATCH TRANSDERM SCH (08:43)
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
[2018-07-29 10:02] LABS: Basophils # (A) 0.1 k/uL (0-0.2); Basophils % (A) 0 %; Eosinophils # (A) 0.3 k/uL (0-0.7); Eosinophils % (A) 2 %; HCT 43.3 % (34.0-46.0); HGB 14.4 gm/dL (11.4-16.0); Lymphocytes # (A) 2.5 k/uL (1.0-4.8); Lymphocytes % (A) 18 %; MCH 29.3 pg (25.0-35.0); MCHC 33.2 g/dL (31.0-37.0); MCV 88.3 fL (80.0-100.0); Mean Platelet Volume 6.6; Monocytes # (A) 0.4 k/uL (0-1.0); Monocytes % (A) 3 %; Neutrophils # (A) 10.8 k/uL (1.3-7.7); Neutrophils % (A) 76 %; Platelet Count 298 k/uL (150-450); RDW 12.8 % (11.5-15.5); WBC 14.3 k/uL (3.8-10.6)
[2018-07-29 10:17] LABS: ALT 25 U/L (9-52); AST 18 U/L (14-36); Albumin 3.7 g/dL (3.5-5.0); Alkaline Phosphatase 79 U/L (38-126); Anion Gap 6 mmol/L; Bilirubin, Delta 0.1 mg/dL (0.0-0.2); Bilirubin,Unconjugated 0.2 mg/dL (0.0-1.1); Blood Urea Nitrogen 10 mg/dL (7-17); Calcium 9.4 mg/dL (8.4-10.2); Carbon Dioxide 24 mmol/L (22-30); Chloride 109 mmol/L (98-107); Cholesterol 234 mg/dL (<200); Glucose 155 mg/dL (74-99); HDL Cholesterol 33 mg/dL (40-60); Potassium 4.7 mmol/L (3.5-5.1); Sodium 139 mmol/L (137-145); Total Bilirubin 0.3 mg/dL (0.2-1.3); Total Protein 6.5 g/dL (6.3-8.2); Triglycerides 422 mg/dL (<150)
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
[2018-07-29 19:59] LABS: Hemoglobin A1C 6.5 % (4.0-6.0)
[2018-07-29] MEDS ORDERED: lamoTRIgine 25 MG TAB PO SCH (21:00)
[2018-07-29] MEDS ORDERED: PALIPERIDONE 3 MG TAB.ER.24 PO SCH (21:00)
[2018-07-29] MEDS: cloNIDine HCL 0.1 MG TAB PO SCH (21:09)
[2018-07-30] MEDS: NICOTINE 14MG/24HR PATCH TRANSDERM SCH (08:52)
[2018-07-30] MEDS: cloNIDine HCL 0.1 MG TAB PO SCH ×2 (08:53→20:37)
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
[2018-07-30] MEDS: lamoTRIgine 25 MG TAB PO SCH (20:37)
[2018-07-30] MEDS: PALIPERIDONE 6 MG TAB.ER.24 PO SCH (20:37)
[2018-07-31] MEDS: NICOTINE 14MG/24HR PATCH TRANSDERM SCH (07:47)
[2018-07-31] MEDS: cloNIDine HCL 0.1 MG TAB PO SCH ×2 (07:48→20:34)
[2018-07-31] MEDS: metFORMIN 500 MG TAB PO SCH (07:48)
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
[2018-07-31] MEDS: PALIPERIDONE 6 MG TAB.ER.24 PO SCH (20:35)
[2018-07-31] MEDS: lamoTRIgine 25 MG TAB PO SCH (20:35)
[2018-08-01] MEDS: NICOTINE 14MG/24HR PATCH TRANSDERM SCH (07:40)
[2018-08-01] MEDS: metFORMIN 500 MG TAB PO SCH (07:40)
[2018-08-01] MEDS: cloNIDine HCL 0.1 MG TAB PO SCH ×2 (07:40→20:08)
[2018-08-01 14:51] LABS: Appearance,Urine Clear (Clear); Bilirubin,Urine Negative (Negative); Blood,Urine Small (Negative); Color,Urine Yellow; Glucose,Urine (UA) Negative (Negative); Ketones,Urine Negative (Negative); Leukocyte Esterase,Urine Negative (Negative); Mucus,Urine Rare /hpf; Nitrite,Urine Negative (Negative); PH, Urine 5.5 (5.0-8.0); Protein,Urine Negative (Negative); RBC,Urine 5 /hpf (0-5); Squamous Epithelial Cell,Urine 1 /hpf (0-4); Urobilinogen,Urine <2.0 mg/dL (<2.0); WBC,Urine <1 /hpf (0-5)
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
[2018-08-01] MEDS: lamoTRIgine 25 MG TAB PO SCH (20:08)
[2018-08-01] MEDS: PALIPERIDONE 6 MG TAB.ER.24 PO SCH (20:09)
[2018-08-02] MEDS: NICOTINE 14MG/24HR PATCH TRANSDERM SCH (08:57)
[2018-08-02] MEDS: metFORMIN 500 MG TAB PO SCH (08:57)
[2018-08-02] MEDS: cloNIDine HCL 0.1 MG TAB PO SCH ×2 (08:58→19:57)
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
[2018-08-02] MEDS ORDERED: LURASIDONE 20 MG TAB PO SCH (17:00)
[2018-08-02] MEDS ORDERED: lamoTRIgine 100 MG TAB PO SCH (21:00)
[2018-08-03] MEDS: NICOTINE 14MG/24HR PATCH TRANSDERM SCH (08:15)
[2018-08-03] MEDS: metFORMIN 500 MG TAB PO SCH (08:15)
[2018-08-03] MEDS: cloNIDine HCL 0.1 MG TAB PO SCH ×2 (08:16→20:23)
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
[2018-08-03] MEDS ORDERED: lamoTRIgine 100 MG TAB PO SCH (21:00)
[2018-08-03] MEDS ORDERED: HALOPERIDOL 1 MG TAB PO SCH (21:00)
[2018-08-04 07:13] VITALS: TEMP 98.2
[2018-08-04] MEDS: NICOTINE 14MG/24HR PATCH TRANSDERM SCH (08:18)
[2018-08-04] MEDS: cloNIDine HCL 0.1 MG TAB PO SCH (08:18)
[2018-08-04] MEDS: metFORMIN 500 MG TAB PO SCH (08:18)
[2018-08-04 08:20] VITALS: BP 98/57; PULSE 82; RESP 20
[2018-08-04] MEDS ORDERED: ATORVASTATIN 10 MG TAB PO SCH (21:00)
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
== END 2018-08-04 12:47 | disposition home or self-care (01) | DRG 885 ==
LOC: EC 14:29 → 3MHU 17:37
PROVIDERS: ADMIT Psychiatry & Neurology Psychiatry; ATTEND Psychiatry & Neurology Psychiatry
DX: F31.9 Bipolar disorder, unspecified (principal); E11.9 Type 2 diabetes mellitus without complications; E78.5 Hyperlipidemia, unspecified; F17.210 Nicotine dependence, cigarettes, uncomplicated; F29 Unspecified psychosis not due to a substance or known physiological condition; F41.9 Anxiety disorder, unspecified; I10 Essential (primary) hypertension; J41.0 Simple chronic bronchitis; Z82.49 Family history of ischemic heart disease and other diseases of the circulatory system; Z91.19 Patient's noncompliance with other medical treatment and regimen; Z98.891 History of uterine scar from previous surgery; T43.96XA Underdosing of unspecified psychotropic drug, initial encounter; Z91.120 Patient's intentional underdosing of medication regimen due to financial hardship
CPT/HCPCS: 36415; 71045; 80053; 80061; 80306; 81001; 81003; 81025; 82075; 82248; 83036; 84443; 85025; 99285

== ENCOUNTER 2018-11-01 09:56 | Emergency (ER) | payer MEDICAID, OTHER ==
[2018-11-01 10:01] VITALS: RESP 18
--- NOTE | 2018-11-01 10:50 | ED ---
Psych HPI - General Chief Complaint: Psychiatric Symptoms Stated Complaint: Mental health Time Seen by Provider: 11/01/18 10:04 Source: patient, RN notes reviewed Mode of arrival: ambulatory Limitations: no limitations - History of Present Illness Initial Comments: 43-year-old female presents emergency Department chief complaint of anxiety issues. Patient states she's been very stressed cannot handle stress. Patient states her anxiety is is out of control. Patient states that she's not exactly suicidal or homicidal. Denies any illicit drug use or alcohol use. Patient does take psychiatric medications states is not helping. Patient denies any physical complaints. Patient does follow up with psychiatrist counseling. - Related Data Home Medications Medication Instructions Recorded Confirmed Haloperidol [Haldol] 0.5 mg PO HS 11/01/18 11/01/18 lamoTRIgine [LaMICtal] 25 mg PO DAILY 11/01/18 11/01/18 lamoTRIgine [LaMICtal] 200 mg PO HS 11/01/18 11/01/18 Previous Rx's Medication Instructions Recorded Atorvastatin [Lipitor] 10 mg PO HS 30 Days #30 tab 08/04/18 metFORMIN HCL [Glucophage] 1,000 mg PO W/BRKFST 30 Days #60 08/04/18 tab Allergies Allergy/AdvReac Type Severity Reaction Status Date / Time No Known Allergies Allergy Verified 11/01/18 10:12 Review of Systems ROS Statement: Those systems with pertinent positive or pertinent negative responses have been documented in the HPI. ROS Other: All systems not noted in ROS Statement are negative. Past Medical History Past Medical History: Diabetes Mellitus Additional Past Medical History / Comment(s): Pt states she may be diabetic, no current prescribed diabetic medications History of Any Multi-Drug Resistant Organisms: None Reported Past Surgical History: Section Past Psychological History: Anxiety, Depression Smoking Status: Current every day smoker Past Alcohol Use History: None Reported Past Drug Use History: None Reported General Exam Limitations: no limitations General appearance: alert, in no apparent distress, anxious Head exam: Present: atraumatic, normocephalic, normal inspection Eye exam: Present: normal appearance, PERRL, EOMI. Absent: scleral icterus, conjunctival injection, periorbital swelling ENT exam: Present: normal exam, normal oropharynx, mucous membranes moist, TM's normal bilaterally Neck exam: Present: normal inspection. Absent: tenderness, meningismus, lymphadenopathy Respiratory exam: Present: normal lung sounds bilaterally. Absent: respiratory distress, wheezes, rales, rhonchi, stridor Cardiovascular Exam: Present: regular rate, normal rhythm, normal heart sounds. Absent: systolic murmur, diastolic murmur, rubs, gallop, clicks Neurological exam: Present: alert, oriented X3, CN II-XII intact Psychiatric exam: Present: anxious Skin exam: Present: warm, dry, intact, normal color. Absent: rash Course Vital Signs 11/01/18 09:58 Temperature 98 F Pulse Rate 97 Respiratory 18 Rate Blood Pressure 119/75 O2 Sat by Pulse 98 Oximetry Medical Decision Making - Medical Decision Making 43-year-old female presented for psychiatric evaluation. Patient was evaluated by mobile crisis unit and EPS case discussed with psychiatrist recommended discharge and follow-up with [facility]. - Lab Data Lab Results 11/01/18 Range/Units 10:20 Urine Opiates Screen Not Detected (NotDetected) Ur Oxycodone Screen Not Detected (NotDetected) Urine Methadone Screen Not Detected (NotDetected) Ur Propoxyphene Screen Not Detected (NotDetected) Ur Barbiturates Screen Not Detected (NotDetected) U Tricyclic Antidepress Not Detected (NotDetected) Ur Phencyclidine Scrn Not Detected (NotDetected) Ur Amphetamines Screen Not Detected (NotDetected) U Methamphetamines Scrn Not Detected (NotDetected) U Benzodiazepines Scrn Not Detected (NotDetected) Urine Cocaine Screen Not Detected (NotDetected) U Marijuana (THC) Screen Not Detected (NotDetected) Disposition Clinical Impression: Acute anxiety Disposition: HOME SELF-CARE Condition: Stable Instructions (If sedation given, give patient instructions): Anxiety (ED) Additional Instructions: Please return to the Emergency Department if symptoms worsen or any other concerns. Is patient prescribed a controlled substance at d/c from ED?: No Referrals: None,Stated [Primary Care Provider] - 1-2 days Time of Disposition: 12:26
[2018-11-01 11:04] LABS: Amphetamine Screen,Urine Not Detected (NotDetected); Barbiturate Screen,Urine Not Detected (NotDetected); Benzodiazepines Screen,Urine Not Detected (NotDetected); Cocaine Screen,Urine Not Detected (NotDetected); Methadone Screen, Urine Not Detected (NotDetected); Opiate Screen,Urine Not Detected (NotDetected); Oxycodone Screen, Urine Not Detected (NotDetected); Phencyclidine Screen,Urine Not Detected (NotDetected); Tricyclic Antidepressant,Urine Not Detected (NotDetected); Urn Cannabinoid Scrn Not Detected (NotDetected)
[2018-11-01] MEDS ORDERED: IBUPROFEN 600 MG TAB PO STA (12:09)
[2018-11-01 13:24] VITALS: BP 114/80; PULSE 91; TEMP 97.8
== END 2018-11-01 13:15 | disposition home or self-care (01) ==
LOC: EC 09:56 → SUPCPDRO 09:56 → EC 13:15
DX: F41.9 Anxiety disorder, unspecified (principal); F32.9 Major depressive disorder, single episode, unspecified; F17.200 Nicotine dependence, unspecified, uncomplicated; Z79.899 Other long term (current) drug therapy
CPT/HCPCS: 80306; 99284

== ENCOUNTER 2018-12-03 06:13 | Emergency (ER) | payer OTHER ==
[2018-12-03 06:26] VITALS: RESP 18
--- NOTE | 2018-12-03 06:42 | ED ---
Extremity Problem HPI - General Chief complaint: Extremity Problem,Nontraumatic Stated complaint: weakness in legs Time Seen by Provider: 12/03/18 06:33 Source: patient Mode of arrival: ambulatory Limitations: no limitations - History of Present Illness Initial comments: Also 43-year-old female with a history of depression and anxiety who presents the emergency department today for evaluation of multiple complaints. Patient reports that she's had chronic back pain however for the past couple of days she feels that her back pain has been worse and she feels like is causing her to have weakness in her legs. She reports that she can still ambulate normally, and move her legs normally but that they just hurt. Patient states the back pain she is experiencing is in her bilateral lower back. Similar to previous episodes of back pain but worse. She reports she usually treats her back pain with Motrin however she is currently out so she hasn't taken any medications for this. She denies any recent falls or injuries. She does not follow with a pain specialist. Patient also states that for the past 2 days she's been having loose stools no nausea or vomiting. No blood in her stool. She wasn't experiencing any abdominal pain until she woke up this morning did have some burning epigastric pain. Patient's mother at bedside expresses concern that the patient has discontinued her psychiatric medications approximately a week ago. Patient states that she ran out she doesn't have primary care physician right now to prescribe them again. It exposes concern that her multitude of symptoms may be related to abruptly stopping her previous medications. - Related Data Home Medications Medication Instructions Recorded Confirmed lamoTRIgine [LaMICtal] 25 mg PO DAILY 11/01/18 12/03/18 lamoTRIgine [LaMICtal] 200 mg PO HS 11/01/18 12/03/18 Previous Rx's Medication Instructions Recorded Ibuprofen [Motrin] 800 mg PO TID #30 tab 12/03/18 Allergies Allergy/AdvReac Type Severity Reaction Status Date / Time No Known Allergies Allergy Verified 12/03/18 08:13 Review of Systems ROS Statement: Those systems with pertinent positive or pertinent negative responses have been documented in the HPI. ROS Other: All systems not noted in ROS Statement are negative. Past Medical History Past Medical History: Diabetes Mellitus Additional Past Medical History / Comment(s): Pt states she may be diabetic, no current prescribed diabetic medications History of Any Multi-Drug Resistant Organisms: None Reported Past Surgical History: Section Past Psychological History: Anxiety, Depression Smoking Status: Current every day smoker Past Alcohol Use History: None Reported Past Drug Use History: None Reported General Exam - General Exam Comments Initial Comments: Physical Exam GENERAL: Patient is well-developed and well-nourished. Patient is nontoxic and well-hydrated and is in no distress. HENT: Normocephalic, Atraumatic. EYES: PERRL, EOMI PULMONARY: Unlabored respirations. No audible rales rhonchi or wheezing was noted. CARDIOVASCULAR: There is a regular rate and rhythm without any murmurs gallops or rubs. ABDOMEN: Soft and nontender with normal bowel sounds. SKIN: Skin is clear with no lesions or rashes and otherwise unremarkable. : Deferred NEUROLOGIC: Patient is alert and oriented x3. CN II-XII grossly intact Moving all extremities spontaneously MUSCULOSKELETAL: Normal extremities with adequate strength and full range of motion. No lower extremity swelling or edema. No calf tenderness. Normal strength in bilateral lower extremities - normal plantarflexion and dorsiflexion of ankles, bending of knee and hips, normal gait, normal leg raise PSYCHIATRIC: Appears paranoid, looking around frequently, asking why when asked questions Limitations: no limitations Limitations: no limitations Course Vital Signs 12/03/18 12/03/18 06:20 08:07 Temperature 98.2 F 98.0 F Pulse Rate 81 79 Respiratory 18 18 Rate Blood Pressure 121/84 135/80 O2 Sat by Pulse 98 98 Oximetry Medical Decision Making - Medical Decision Making The patient was seen and evaluated history is obtained from the patient This 43-year-old female who presents with a multitude of complaints including chronic back pain which seems worse over the past 2-3 days though she has not taken any medications for this or back pains usually treated with Motrin. She also reports 2 days of loose stools which may be related to something she ate she also reports that this morning she woke with some epigastric discomfort with no nausea or vomiting. Mother bedside concerning the patient's on taking her psychoactive medications. Exam patient does seem somewhat paranoid, she is looking around the room continuously, when asked questions she is defensive asking why they're being asked. She has delayed answers. Patient repeatedly requesting a x-ray of her back, I discussed with her that this is not typical for us to order given she cole s no trauma, however patient is persistent and fixated on this idea. Xray will be ordered due to patient request Patient's labs were unremarkable Results discussed with the patient. I advised the patient that she should resume Motrin for her back pain and should follow-up with primary care as well as a pain specialist I will refer the patient and both pain management and orthopedics for further follow-up. Patient reported that if I wrote her prescription for Motrin she would be able to get it free of charge for prescription was provided. All questions pertaining care were answered return parameters were discussed the patient was discharged home in stable condition. - Lab Data Result diagrams: 12/03/18 06:47 12/03/18 06:47 Lab Results 12/03/18 12/03/18 12/03/18 Range/Units 06:47 06:47 06:55 WBC 10.9 H (3.8-10.6) k/uL RBC 5.19 (3.80-5.40) m/uL Hgb 15.4 (11.4-16.0) gm/dL Hct 44.5 (34.0-46.0) % MCV 85.7 (80.0-100.0) fL MCH 29.6 (25.0-35.0) pg MCHC 34.6 (31.0-37.0) g/dL RDW 13.9 (11.5-15.5) % Plt Count 367 (150-450) k/uL Neutrophils % 71 % Lymphocytes % 20 % Monocytes % 4 % Eosinophils % 3 % Basophils % 1 % Neutrophils # 7.7 (1.3-7.7) k/uL Lymphocytes # 2.2 (1.0-4.8) k/uL Monocytes # 0.4 (0-1.0) k/uL Eosinophils # 0.4 (0-0.7) k/uL Basophils # 0.1 (0-0.2) k/uL Sodium 137 (137-145) mmol/L Potassium 5.4 H (3.5-5.1) mmol/L Chloride 108 H (98-107) mmol/L Carbon Dioxide 21 L (22-30) mmol/L Anion Gap 8 mmol/L BUN 12 (7-17) mg/dL Creatinine 0.52 (0.52-1.04) mg/dL Est GFR (CKD-EPI)AfAm >90 (>60 ml/min/1.73 sqM) Est GFR (CKD-EPI)NonAf >90 (>60 ml/min/1.73 sqM) Glucose 158 H (74-99) mg/dL Calcium 9.3 (8.4-10.2) mg/dL Total Bilirubin 0.8 (0.2-1.3) mg/dL AST 35 (14-36) U/L ALT 20 (9-52) U/L Alkaline Phosphatase 61 (38-126) U/L Total Protein 7.6 (6.3-8.2) g/dL Albumin 4.3 (3.5-5.0) g/dL Amylase 45 (30-110) U/L Lipase 104 (23-300) U/L Urine Color Urine Appearance (Clear) Urine pH (5.0-8.0) Ur Specific [place] (1.001-1.035) Urine Protein (Negative) Urine Glucose (UA) (Negative) Urine Ketones (Negative) Urine Blood (Negative) Urine Nitrite (Negative) Urine Bilirubin (Negative) Urine Urobilinogen (<2.0) mg/dL Ur Leukocyte Esterase (Negative) Urine RBC (0-5) /hpf Urine WBC (0-5) /hpf Ur Squamous Epith Cells (0-4) /hpf Urine Mucus (None) /hpf Urine HCG, Qual Not Detected (Not Detectd) 12/03/18 Range/Units 06:55 WBC (3.8-10.6) k/uL RBC (3.80-5.40) m/uL Hgb (11.4-16.0) gm/dL Hct (34.0-46.0) % MCV (80.0-100.0) fL MCH (25.0-35.0) pg MCHC (31.0-37.0) g/dL RDW (11.5-15.5) % Plt Count (150-450) k/uL Neutrophils % % Lymphocytes % % Monocytes % % Eosinophils % % Basophils % % Neutrophils # (1.3-7.7) k/uL Lymphocytes # (1.0-4.8) k/uL Monocytes # (0-1.0) k/uL Eosinophils # (0-0.7) k/uL Basophils # (0-0.2) k/uL Sodium (137-145) mmol/L Potassium (3.5-5.1) mmol/L Chloride (98-107) mmol/L Carbon Dioxide (22-30) mmol/L Anion Gap mmol/L BUN (7-17) mg/dL Creatinine (0.52-1.04) mg/dL Est GFR (CKD-EPI)AfAm (>60 ml/min/1.73 sqM) Est GFR (CKD-EPI)NonAf (>60 ml/min/1.73 sqM) Glucose (74-99) mg/dL Calcium (8.4-10.2) mg/dL Total Bilirubin (0.2-1.3) mg/dL AST (14-36) U/L ALT (9-52) U/L Alkaline Phosphatase (38-126) U/L Total Protein (6.3-8.2) g/dL Albumin (3.5-5.0) g/dL Amylase (30-110) U/L Lipase (23-300) U/L Urine Color Light Yellow Urine Appearance Clear (Clear) Urine pH 5.5 (5.0-8.0) Ur Specific [place] 1.014 (1.001-1.035) Urine Protein Negative (Negative) Urine Glucose (UA) 3+ H (Negative) Urine Ketones Negative (Negative) Urine Blood Trace H (Negative) Urine Nitrite Negative (Negative) Urine Bilirubin Negative (Negative) Urine Urobilinogen <2.0 (<2.0) mg/dL Ur Leukocyte Esterase Negative (Negative) Urine RBC 1 (0-5) /hpf Urine WBC 1 (0-5) /hpf Ur Squamous Epith Cells 2 (0-4) /hpf Urine Mucus Rare H (None) /hpf Urine HCG, Qual (Not Detectd) Disposition Clinical Impression: Lumbago Disposition: HOME SELF-CARE Condition: Stable Instructions (If sedation given, give patient instructions): Chronic Back Pain (ED), Lower Back Exercises (ED) Prescriptions: Ibuprofen [Motrin] 800 mg PO TID #30 tab Is patient prescribed a controlled substance at d/c from ED?: No Referrals: None,Stated [Primary Care Provider] - 1-2 days Ashtyn Fernandez MD [REFERRING] - 1-2 days Renaldo Saavedra MD [STAFF PHYSICIAN] - 1-2 days Radhika Dahl DO [Doctor of Osteopathic Medicine] - 1-2 days
[2018-12-03] MEDS ORDERED: SODIUM CHLORIDE 0.9% 1,000 ML IV STA (06:49)
[2018-12-03] MEDS ORDERED: KETOROLAC 30 MG/ML 1 ML VIAL IVP STA (06:49)
[2018-12-03 06:58] LABS: Basophils # (A) 0.1 k/uL (0-0.2); Basophils % (A) 1 %; Eosinophils # (A) 0.4 k/uL (0-0.7); Eosinophils % (A) 3 %; HCT 44.5 % (34.0-46.0); HGB 15.4 gm/dL (11.4-16.0); Lymphocytes # (A) 2.2 k/uL (1.0-4.8); Lymphocytes % (A) 20 %; MCH 29.6 pg (25.0-35.0); MCHC 34.6 g/dL (31.0-37.0); MCV 85.7 fL (80.0-100.0); Mean Platelet Volume 8.8; Monocytes # (A) 0.4 k/uL (0-1.0); Monocytes % (A) 4 %; Neutrophils # (A) 7.7 k/uL (1.3-7.7); Neutrophils % (A) 71 %; Platelet Count 367 k/uL (150-450); RBC 5.19 m/uL (3.80-5.40); RDW 13.9 % (11.5-15.5); WBC 10.9 k/uL (3.8-10.6)
[2018-12-03 07:11] LABS: Appearance,Urine Clear (Clear); Bilirubin,Urine Negative (Negative); Blood,Urine Trace (Negative); Color,Urine Light Yellow; Glucose,Urine (UA) 3+ (Negative); Ketones,Urine Negative (Negative); Leukocyte Esterase,Urine Negative (Negative); Mucus,Urine Rare /hpf; Nitrite,Urine Negative (Negative); PH, Urine 5.5 (5.0-8.0); Protein,Urine Negative (Negative); RBC,Urine 1 /hpf (0-5); Specific Gravity,Urine 1.014 (1.001-1.035); Squamous Epithelial Cell,Urine 2 /hpf (0-4); Urobilinogen,Urine <2.0 mg/dL (<2.0); WBC,Urine 1 /hpf (0-5)
[2018-12-03 07:22] LABS: ALT 20 U/L (9-52); AST 35 U/L (14-36); Albumin 4.3 g/dL (3.5-5.0); Alkaline Phosphatase 61 U/L (38-126); Amylase 45 U/L (30-110); Anion Gap 8 mmol/L; Blood Urea Nitrogen 12 mg/dL (7-17); Calcium 9.3 mg/dL (8.4-10.2); Carbon Dioxide 21 mmol/L (22-30); Chloride 108 mmol/L (98-107); Glucose 158 mg/dL (74-99); Lipase 104 U/L (23-300); Sodium 137 mmol/L (137-145); Total Bilirubin 0.8 mg/dL (0.2-1.3); Total Protein 7.6 g/dL (6.3-8.2)
[2018-12-03 07:25] LABS: Potassium 5.4 mmol/L (3.5-5.1)
--- NOTE | 2018-12-03 07:48 | XR ---
Lumbar spine HISTORY: Low back pain and leg weakness 3 views of the lumbar spine Lumbar vertebral bodies show preserved height and alignment. Suspect sacralization of L5. There is lo ss of disc height especially at what is believed to be L4-5. There is multilevel spondylosis. There i s associated vacuum phenomenon. Bone mineralization is normal. IMPRESSION: Degenerative disc disease. Correlate with plain film prior to any intervention. Lumbar MR I may be of benefit.
[2018-12-03 08:10] VITALS: BP 135/80; PULSE 79; TEMP 98
== END 2018-12-03 08:10 | disposition home or self-care (01) ==
LOC: EC 06:13
DX: M54.5 Low back pain (principal); F32.9 Major depressive disorder, single episode, unspecified; Z79.899 Other long term (current) drug therapy
CPT/HCPCS: 36415; 80053; 82150; 83690; 85025; 81001; 81025; 72100; 99283; 96374; 96361; J1885

== ENCOUNTER 2019-04-15 06:57 | Emergency (ER) | payer OTHER ==
[2019-04-15 07:10] VITALS: BP 114/74; PULSE 75; RESP 20; TEMP 98
[2019-04-15] MEDS ORDERED: LORazepam 1 MG TAB PO STA (07:42)
--- NOTE | 2019-04-15 07:42 | ED ---
General Adult HPI - General Chief complaint: Psychiatric Symptoms Stated complaint: Mental health Time Seen by Provider: 04/15/19 07:39 Source: patient, RN notes reviewed Mode of arrival: ambulatory Limitations: no limitations - History of Present Illness Initial comments: This is a 43-year-old female who presents emergency Department with the complaint of anxiety. Patient states she stopped taking her Zoloft because she ran out of it about 2 weeks ago. Patient states she has an appointment with her primary medical care doctor to get a refill. Patient states she's here today because she's feeling a little anxious last couple of days and she thinks she needs some just calm down a little bit. Patient denies any suicidal homicidal ideations. Patient denies any alcohol or drug abuse. Patient denies any physical complaints today. Patient denies headache patient denies any numbness or weakness. Patient denies any recent fever chills or cough per patient denies chest pain patient denies difficulty breathing shortness of breath. Patient denies any abdominal pain patient denies nausea vomiting diarrhea. Patient denies any recent lesions rashes or areas of redness. - Related Data Home Medications Medication Instructions Recorded Confirmed lamoTRIgine [LaMICtal] 25 mg PO DAILY 11/01/18 12/03/18 lamoTRIgine [LaMICtal] 200 mg PO HS 11/01/18 12/03/18 Previous Rx's Medication Instructions Recorded Ibuprofen [Motrin] 800 mg PO TID #30 tab 12/03/18 Allergies Allergy/AdvReac Type Severity Reaction Status Date / Time No Known Allergies Allergy Verified 04/15/19 07:10 Review of Systems ROS Statement: Those systems with pertinent positive or pertinent negative responses have been documented in the HPI. ROS Other: All systems not noted in ROS Statement are negative. Past Medical History Past Medical History: Diabetes Mellitus Additional Past Medical History / Comment(s): Pt states she may be diabetic, no current prescribed diabetic medications History of Any Multi-Drug Resistant Organisms: None Reported Past Surgical History: Section Past Psychological History: Anxiety, Depression Smoking Status: Current every day smoker Past Alcohol Use History: None Reported Past Drug Use History: None Reported General Exam - General Exam Comments Initial Comments: GENERAL: Patient is well-developed and well-nourished. Patient is nontoxic and well- hydrated and is in no acute distress. ENT: Neck is soft and supple. No significant lymphadenopathy is noted. Oropharynx is clear. Moist mucous membranes. Neck has full range of motion without eliciting any pain. EYES: The sclera were anicteric and conjunctiva were pink and moist. Extraocular movements were intact and pupils were equal round and reactive to light. Eyelids were unremarkable. PULMONARY: Unlabored respirations. Good breath sounds bilaterally. No audible rales rhonchi or wheezing was noted. CARDIOVASCULAR: There is a regular rate and rhythm without any murmurs gallops or rubs. ABDOMEN: Soft and nontender with normal bowel sounds. SKIN: Skin is clear with no lesions or rashes and otherwise unremarkable. NEUROLOGIC: Patient is alert and oriented x3. Cranial nerves II through XII are grossly intact. Motor and sensory are also intact. Normal speech, volume and content. Symmetrical smile. MUSCULOSKELETAL: Normal extremities with adequate strength and full range of motion. LYMPHATICS: No significant lymphadenopathy is noted PSYCHIATRIC: Patient is anxious but she does deny suicidal homicidal ideations. Limitations: no limitations Course Vital Signs 04/15/19 07:08 Temperature 98 F Pulse Rate 75 Respiratory 20 Rate Blood Pressure 114/74 O2 Sat by Pulse 96 Oximetry Medical Decision Making - Medical Decision Making Patient states she just wants something for anxiety now and then she'll follow- up with primary medical care doctor. Disposition Clinical Impression: Acute anxiety Disposition: HOME SELF-CARE Condition: Good Instructions (If sedation given, give patient instructions): Anxiety (ED) Is patient prescribed a controlled substance at d/c from ED?: No Referrals: None,Stated [Primary Care Provider] - 1-2 days Time of Disposition: 07:42
== END 2019-04-15 07:54 | disposition home or self-care (01) ==
LOC: EC 06:57
DX: F41.9 Anxiety disorder, unspecified (principal); F32.9 Major depressive disorder, single episode, unspecified; F17.200 Nicotine dependence, unspecified, uncomplicated; Z79.899 Other long term (current) drug therapy
CPT/HCPCS: 99283

== ENCOUNTER 2020-10-17 09:11 | Emergency (ER) | payer OTHER ==
[2020-10-17 09:18] VITALS: BP 156/97; PULSE 93; RESP 18; TEMP 97.9
[2020-10-17] MEDS ORDERED: ACET/COD 300 MG/30 MG STARTER PACK 6 TAB BTL PO STA (09:49)
--- NOTE | 2020-10-17 09:50 | ED ---
General Adult HPI - General Source: patient, RN notes reviewed Mode of arrival: ambulatory Limitations: no limitations <Marcos Mathis - Last Filed: 10/17/20 09:59> <Melani Dodd - Last Filed: 10/17/20 22:13> - General Chief complaint: Extremity Injury, Upper Stated complaint: R Finger Pain Time Seen by Provider: 10/17/20 09:21 - History of Present Illness Initial comments: 45-year-old female without any significant past medical history presents to the emergency room for a chief complaint of right second digit problems. Patient reports a week ago she woke up and was unable to bend her right second digit. That she is just not able to do this and when she tries it is painful. Patient states she saw [facility] a week ago and they did x-rays which were negative and referred her to orthopedic surgeon. Patient reports she tried to follow-up with the surgeon but they had moved offices and she was unable to get in contact with them and was unsure what to do. Therefore she came to the emergency room. Patient does not have any fevers at home. She denies any increased warmth of that finger or swelling. She denies any streaking redness. Patient denies noticing any injury and woke up denies any weakness in the rest of the hand.Patient has no other complaints at this time including shortness of breath, chest pain, abdominal pain, nausea or vomiting, headache, or visual changes. (Marcos Mathis) - Related Data Home Medications Medication Instructions Recorded Confirmed lamoTRIgine [LaMICtal] 25 mg PO DAILY 11/01/18 04/15/19 lamoTRIgine [LaMICtal] 200 mg PO HS 11/01/18 04/15/19 Previous Rx's Medication Instructions Recorded Ibuprofen [Motrin] 800 mg PO TID #30 tab 12/03/18 Allergies Allergy/AdvReac Type Severity Reaction Status Date / Time No Known Allergies Allergy Verified 10/17/20 09:15 Review of Systems ROS Other: All systems not noted in ROS Statement are negative. <Marcos Mathis - Last Filed: 10/17/20 09:59> ROS Other: All systems not noted in ROS Statement are negative. <Melani Dodd - Last Filed: 02/17/21 22:13> ROS Statement: Those systems with pertinent positive or pertinent negative responses have been documented in the HPI. Past Medical History Past Medical History: Diabetes Mellitus Additional Past Medical History / Comment(s): Pt states she may be diabetic, no current prescribed diabetic medications History of Any Multi-Drug Resistant Organisms: None Reported Past Surgical History: Section Past Psychological History: Anxiety, Depression Smoking Status: Current every day smoker Past Alcohol Use History: None Reported Past Drug Use History: None Reported <Marcos Mathis - Last Filed: 10/17/20 09:59> General Exam Limitations: no limitations General appearance: alert, in no apparent distress Head exam: Present: atraumatic Eye exam: Present: normal appearance, PERRL, EOMI. Absent: scleral icterus, conjunctival injection ENT exam: Present: normal exam, mucous membranes moist Neck exam: Present: normal inspection, full ROM. Absent: tenderness Respiratory exam: Present: normal lung sounds bilaterally. Absent: respiratory distress, wheezes Cardiovascular Exam: Present: regular rate, normal rhythm, normal heart sounds GI/Abdominal exam: Present: soft, normal bowel sounds. Absent: distended, tenderness Extremities exam: Present: normal capillary refill (Capillary refill less than 2 seconds in the right second digit. Radial pulses 2+ right upper extremity.), other (Patient has no erythema or edema or fusiform swelling of the right second digit. There is no streaking redness. There is no evidence of infection. Skin exam appears normal.). Absent: full ROM (Patient unable to flex the of the right second digit. She is able to flex the MCP joint about 45.), tenderness (No significant tenderness noted throughout the flexor tendon of the right second digit. No tenderness in the right hand.) Neurological exam: Present: alert <Marcos Mathis - Last Filed: 10/17/20 09:59> Course Vital Signs 10/17/20 09:16 Temperature 97.9 F Pulse Rate 93 Respiratory 18 Rate Blood Pressure 156/97 O2 Sat by Pulse 99 Oximetry Medical Decision Making <Marcos Mathis - Last Filed: 10/17/20 09:59> <Melani Dodd - Last Filed: 10/17/20 22:13> - Medical Decision Making HPI and physical exam as documented. Afebrile. There is no physical exam evidence for a flexor tenosynovitis. There is no edema erythema or tenderness of the flexor or extensor tendon. No pain with extension. Finger is held in extended posture. Hand appears normal, no swelling or tenderness. No weakness or pain in digits 1 or 3-5. Patient had x-rays at another facility and would not like these repeated. Patient is requesting referral to orthopedics. We will refer her to orthopedic associates who are on-call today. I discussed her return parameters for evidence of infection and patient is agreeable to this. She will return for any worsening symptoms.I discussed this case with attending Dr. Dodd who agrees with this assessment and treatment plan. (Marcos Mathis) I was available for consultation in the emergency department. The history and physical exam were done by the midlevel provider. I was consulted for this patients care. I reviewed the case with the midlevel provider and based on their presentation of the patient, I agree with the assessment, medical decision making and plan of care as documented. Chart was dictated using [employer] dictation software. Attempts were made to correct any dictation errors however some typographical errors may persist. Patient was seen during a national state of emergency due to the Covid-19 pandemic. (Melani Dodd) Disposition Is patient prescribed a controlled substance at d/c from ED?: No Time of Disposition: 09:48 <Marcos Mathis - Last Filed: 10/17/20 09:59> <Melani Dodd - Last Filed: 10/17/20 22:13> Clinical Impression: Finger pain, right Disposition: HOME SELF-CARE Condition: Good Instructions (If sedation given, give patient instructions): Finger Sprain (ED) Additional Instructions: Please take Motrin for pain every 6 hours. If pain is severe take Tylenol 3. Do not drive or operate machinery while taking this. Follow-up with orthopedics by calling today for an appointment. Return to the emergency room for any worsening symptoms. Referrals: Nonstaff,Physician [Primary Care Provider] - 1-2 days Radhika Dahl DO [Doctor of Osteopathic Medicine] - 1-2 days
== END 2020-10-17 10:01 | disposition home or self-care (01) ==
LOC: EC 09:11
DX: M79.644 Pain in right finger(s) (principal); F17.200 Nicotine dependence, unspecified, uncomplicated; F41.9 Anxiety disorder, unspecified; F32.9 Major depressive disorder, single episode, unspecified; Z79.899 Other long term (current) drug therapy
CPT/HCPCS: 99283

== ENCOUNTER 2021-02-07 06:41 | Emergency (ER) | payer OTHER ==
[2021-02-07 06:45] VITALS: BP 114/71; PULSE 85; RESP 20; TEMP 98.2
--- NOTE | 2021-02-07 07:19 | ED ---
Back Pain HPI - General Chief Complaint: Back Pain/Injury Stated Complaint: Back Spasms Time Seen by Provider: 02/07/21 06:50 Source: patient, RN notes reviewed Limitations: no limitations - History of Present Illness Initial Comments: 45-year-old female presents emergency Department with chief complaint of low back pain. Patient states started a couple days ago. states that she has not taken anything at home for discomfort. Patient states that she has no abdominal pain or dysuria no hematuria. Patient denies any fevers chills no chest pain or shortness breath no other complaints. Patient states she's had back. This in the past. - Related Data Home Medications Medication Instructions Recorded Confirmed lamoTRIgine [LaMICtal] 25 mg PO DAILY 11/01/18 04/15/19 lamoTRIgine [LaMICtal] 200 mg PO HS 11/01/18 04/15/19 Previous Rx's Medication Instructions Recorded Ibuprofen [Motrin] 800 mg PO TID #30 tab 12/03/18 Cyclobenzaprine [Flexeril] 10 mg PO TID PRN #15 tab 02/07/21 Ibuprofen [Motrin] 600 mg PO Q8HR PRN #20 tab 02/07/21 Allergies Allergy/AdvReac Type Severity Reaction Status Date / Time No Known Allergies Allergy Verified 02/07/21 06:45 Review of Systems ROS Statement: Those systems with pertinent positive or pertinent negative responses have been documented in the HPI. ROS Other: All systems not noted in ROS Statement are negative. Past Medical History Past Medical History: Diabetes Mellitus Additional Past Medical History / Comment(s): Pt states she may be diabetic, no current prescribed diabetic medications History of Any Multi-Drug Resistant Organisms: None Reported Past Surgical History: Section Past Psychological History: Anxiety, Depression Smoking Status: Current every day smoker Past Alcohol Use History: None Reported Past Drug Use History: None Reported General Exam Limitations: no limitations General appearance: alert, in no apparent distress Head exam: Present: atraumatic, normocephalic, normal inspection Neck exam: Present: normal inspection, full ROM. Absent: tenderness, meningismus, lymphadenopathy Respiratory exam: Present: normal lung sounds bilaterally. Absent: respiratory distress, wheezes, rales, rhonchi, stridor Cardiovascular Exam: Present: regular rate, normal rhythm, normal heart sounds. Absent: systolic murmur, diastolic murmur, rubs, gallop, clicks Extremities exam: Present: other (Lower extremity strength equal bilaterally equal color equal warmth neurovascular intact) Back exam: Present: full ROM, tenderness (Lower lumbar paraspinal, etc. region), muscle spasm, paraspinal tenderness. Absent: vertebral tenderness Neurological exam: Present: alert, oriented X3, CN II-XII intact, reflexes normal. Absent: motor sensory deficit Course Vital Signs 02/07/21 06:43 Temperature 98.2 F Pulse Rate 85 Respiratory 20 Rate Blood Pressure 114/71 O2 Sat by Pulse 99 Oximetry Medical Decision Making - Medical Decision Making Patient is a lumbar strain muscle spasms. Patient has no red flag symptoms of a discharged in stable condition. Disposition Clinical Impression: Strain of lumbar region Disposition: HOME SELF-CARE Condition: Stable Instructions (If sedation given, give patient instructions): Acute Low Back Pain (ED) Additional Instructions: Please return to the Emergency Department if symptoms worsen or any other concerns. Prescriptions: Cyclobenzaprine [Flexeril] 10 mg PO TID PRN #15 tab PRN Reason: Muscle Spasm Ibuprofen [Motrin] 600 mg PO Q8HR PRN #20 tab PRN Reason: Pain Is patient prescribed a controlled substance at d/c from ED?: No Referrals: Riana Mack MD [Primary Care Provider] - 1-2 days Time of Disposition: 07:18
== END 2021-02-07 07:31 | disposition home or self-care (01) ==
LOC: EC 06:41
DX: S39.012A Strain of muscle, fascia and tendon of lower back, initial encounter (principal); E11.9 Type 2 diabetes mellitus without complications; F41.9 Anxiety disorder, unspecified; F32.9 Major depressive disorder, single episode, unspecified; F17.200 Nicotine dependence, unspecified, uncomplicated; Z79.1 Long term (current) use of non-steroidal anti-inflammatories (NSAID); X58.XXXA Exposure to other specified factors, initial encounter
CPT/HCPCS: 99283

== ENCOUNTER 2021-10-15 10:41 | Emergency (ER) | payer OTHER ==
[2021-10-15 10:45] VITALS: BP 128/78; PULSE 80; RESP 20; TEMP 97.5
--- NOTE | 2021-10-15 11:57 | CT ---
EXAMINATION TYPE: CT cervical spine wo con DATE OF EXAM: 10/15/2021 COMPARISON: NONE HISTORY: Fall or slept wrong, left neck pain after injury. CT DLP: 433.4 mGycm. Automated Exposure Control for Dose Reduction was Utilized. TECHNIQUE: CT scan of the cervical spine is obtained without contrast, axial images are obtained, sa gittal and coronal reformatted images are also reviewed. FINDINGS: Cervical spine is visualized in its entirety from C1 through upper thoracic levels, demonst rates satisfactory alignment without evidence of acute fracture or dislocation. Prevertebral soft ti ssue appears within normal limits. The C1-C2 articulation is within normal limits on the coronal sierra ges. Vertebral body heights and disc space heights are maintained. Spinal canal is preserved. Review of axial images shows no significant spinal canal stenosis or neural foraminal narrowing at an y cervical level. Thyroid gland is felt within normal limits. Visualized lung apices are clear. IMPRESSION: There is no acute fracture or dislocation evident in the cervical spine.
--- NOTE | 2021-10-15 12:01 | ED ---
Neck Injury/Pain HPI - General Source: patient, RN notes reviewed Mode of arrival: ambulatory Limitations: no limitations <Linus Ballesteros - Last Filed: 10/15/21 11:58> <Melani Dodd - Last Filed: 10/18/21 23:34> - General Chief Complaint: Neck Pain/Injury Stated Complaint: neck pain Time Seen by Provider: 10/15/21 11:03 - History of Present Illness Initial Comments: This a 46-year-old female presents emergency Department with chief complaint of neck discomfort. Patient states she has left-sided neck pain and rates her shoulder. Patient denies any upper extremity weakness no headache dizziness blurred vision or any focal weakness. Patient states hurts when she twists her neck. She states that she slid out of the her bed the other morning states that it was just an awkward fall. No abdominal pain no chest pain no other complaints. (Linus Ballesterso) - Related Data Home Medications Medication Instructions Recorded Confirmed Lurasidone [Latuda] 40 mg PO HS 10/15/21 10/15/21 Sertraline HCl [Zoloft] 50 mg PO DAILY 10/15/21 10/15/21 Simvastatin [Zocor] 5 mg PO DAILY 10/15/21 10/15/21 metFORMIN HCL 500 mg PO BID 10/15/21 10/15/21 Previous Rx's Medication Instructions Recorded Ibuprofen [Motrin] 600 mg PO Q8HR PRN #20 tab 10/15/21 Orphenadrine [Norflex] 100 mg PO Q12H #14 tab 10/15/21 Allergies Allergy/AdvReac Type Severity Reaction Status Date / Time No Known Allergies Allergy Verified 10/15/21 12:09 Review of Systems ROS Other: All systems not noted in ROS Statement are negative. <Linus Ballesteros - Last Filed: 10/15/21 11:58> ROS Other: All systems not noted in ROS Statement are negative. <Melani Dodd - Last Filed: 10/18/21 23:34> ROS Statement: Those systems with pertinent positive or pertinent negative responses have been documented in the HPI. Past Medical History Past Medical History: Diabetes Mellitus Additional Past Medical History / Comment(s): Pt states she may be diabetic, no current prescribed diabetic medications History of Any Multi-Drug Resistant Organisms: None Reported Past Surgical History: Section Past Psychological History: Anxiety, Depression Smoking Status: Current every day smoker Past Alcohol Use History: None Reported Past Drug Use History: None Reported <Linus Ballesteros - Last Filed: 10/15/21 11:58> General Exam Limitations: no limitations General appearance: alert, in no apparent distress Head exam: Present: atraumatic, normocephalic, normal inspection Eye exam: Present: normal appearance, PERRL, EOMI. Absent: scleral icterus, conjunctival injection, periorbital swelling ENT exam: Present: normal exam, normal oropharynx, mucous membranes moist Neck exam: Present: normal inspection, full ROM. Absent: tenderness, meningismus, lymphadenopathy Respiratory exam: Present: normal lung sounds bilaterally. Absent: respiratory distress, wheezes, rales, rhonchi, stridor Cardiovascular Exam: Present: regular rate, normal rhythm, normal heart sounds. Absent: systolic murmur, diastolic murmur, rubs, gallop, clicks Extremities exam: Present: other (Upper extremity strength bilaterally neurovascular intact) Back exam: Present: full ROM. Absent: tenderness, CVA tenderness (R), CVA tenderness (L), paraspinal tenderness, vertebral tenderness Neurological exam: Present: alert, oriented X3, CN II-XII intact, reflexes normal. Absent: motor sensory deficit Skin exam: Present: warm, dry, intact, normal color. Absent: rash <Linus Ballesteros - Last Filed: 10/15/21 11:58> Course Vital Signs 10/15/21 10:43 Temperature 97.5 F L Pulse Rate 80 Respiratory 20 Rate Blood Pressure 128/78 O2 Sat by Pulse 97 Oximetry Medical Decision Making <Linus Ballesteros - Last Filed: 10/15/21 11:58> <Melani Dodd - Last Filed: 10/18/21 23:34> - Medical Decision Making CT is unremarkable. Patient has muscular neck strain. Patient discharged in stable condition. (Linus Ballesteros) I was available for consultation in the emergency department. The history and physical exam were done by the midlevel provider. I was consulted for this patients care. I reviewed the case with the midlevel provider and based on their presentation of the patient, I agree with the assessment, medical decision making and plan of care as documented. Chart was dictated using [employer] dictation software. Attempts were made to correct any dictation errors however some typographical errors may persist. Patient was seen during a national state of emergency due to the Covid-19 pandemic. (Melani Dodd) Disposition Is patient prescribed a controlled substance at d/c from ED?: No Time of Disposition: 12:01 <Linus Ballesteros - Last Filed: 10/15/21 11:58> <Melani Dodd - Last Filed: 10/18/21 23:34> Clinical Impression: Cervical strain, acute Disposition: HOME SELF-CARE Condition: Stable Instructions (If sedation given, give patient instructions): Cervical Strain (ED) Additional Instructions: Please return to the Emergency Department if symptoms worsen or any other concerns. Prescriptions: Ibuprofen [Motrin] 600 mg PO Q8HR PRN #20 tab PRN Reason: Pain Orphenadrine [Norflex] 100 mg PO Q12H #14 tab Referrals: Riana Mack MD [Primary Care Provider] - 1-2 days
== END 2021-10-15 12:07 | disposition home or self-care (01) ==
LOC: EC 10:41
DX: S16.1XXA Strain of muscle, fascia and tendon at neck level, initial encounter (principal); E11.9 Type 2 diabetes mellitus without complications; F41.9 Anxiety disorder, unspecified; F32.A Depression, unspecified; F17.200 Nicotine dependence, unspecified, uncomplicated; X50.1XXA Overexertion from prolonged static or awkward postures, initial encounter
CPT/HCPCS: 72125; 99283

== ENCOUNTER 2021-12-30 06:44 | Emergency (ER) | payer OTHER ==
[2021-12-30 06:53] VITALS: BP 113/73; PULSE 77; RESP 16; TEMP 98
--- NOTE | 2021-12-30 07:23 | XR ---
EXAMINATION TYPE: XR foot complete RT DATE OF EXAM: 12/30/2021 CLINICAL HISTORY: pain TECHNIQUE: Frontal, lateral and oblique images of the right foot are obtained. COMPARISON: None. FINDINGS: There is no acute fracture/dislocation evident. The joint spaces appear within normal patel its. The overlying soft tissue appears unremarkable. Mild hallux valgus deformity of the great toe. IMPRESSION: There is no acute fracture or dislocation. ICD 10 NO FRACTURE, INITIAL EVALUATION
--- NOTE | 2021-12-30 07:48 | ED ---
General Adult HPI - General Chief complaint: Extremity Injury, Lower Stated complaint: R Foot Pain Time Seen by Provider: 12/30/21 06:53 Source: patient, RN notes reviewed Mode of arrival: ambulatory Limitations: no limitations - History of Present Illness Initial comments: 46-year-old female presents emergency Department with chief complaint right foot pain. Patient states symptoms started last 4 days she has pain at top of her foot and some swelling noted. Patient states that she had no injury steroids is from work. Patient does have known bunions. Patient denies any prior fractures no paresthesias. Patient offers no complaints. - Related Data Home Medications Medication Instructions Recorded Confirmed Lurasidone [Latuda] 40 mg PO HS 10/15/21 10/15/21 Sertraline HCl [Zoloft] 50 mg PO DAILY 10/15/21 10/15/21 Simvastatin [Zocor] 5 mg PO DAILY 10/15/21 10/15/21 metFORMIN HCL 500 mg PO BID 10/15/21 10/15/21 Previous Rx's Medication Instructions Recorded Ibuprofen [Motrin] 600 mg PO Q8HR PRN #20 tab 10/15/21 Orphenadrine [Norflex] 100 mg PO Q12H #14 tab 10/15/21 Ibuprofen [Motrin] 600 mg PO Q8HR PRN #20 tab 12/30/21 Allergies Allergy/AdvReac Type Severity Reaction Status Date / Time No Known Allergies Allergy Verified 12/30/21 06:50 Review of Systems ROS Statement: Those systems with pertinent positive or pertinent negative responses have been documented in the HPI. ROS Other: All systems not noted in ROS Statement are negative. Past Medical History Past Medical History: Diabetes Mellitus Additional Past Medical History / Comment(s): Pt states she may be diabetic, no current prescribed diabetic medications History of Any Multi-Drug Resistant Organisms: None Reported Past Surgical History: Section Past Psychological History: Anxiety, Depression Smoking Status: Current every day smoker Past Alcohol Use History: None Reported Past Drug Use History: None Reported General Exam Limitations: no limitations General appearance: alert, in no apparent distress Head exam: Present: atraumatic, normocephalic, normal inspection Neck exam: Present: normal inspection, full ROM. Absent: tenderness, meningismus, lymphadenopathy Respiratory exam: Present: normal lung sounds bilaterally. Absent: respiratory distress, wheezes, rales, rhonchi, stridor Extremities exam: Present: other (Right foot there is mild swelling the dorsal aspect, there is a small palpable mass which appears to be a cyst. Vascular intact full range of motion) Neurological exam: Present: alert Skin exam: Present: warm, dry, intact, normal color. Absent: rash Course Vital Signs 12/30/21 06:50 Temperature 98.0 F Pulse Rate 77 Respiratory 16 Rate Blood Pressure 113/73 O2 Sat by Pulse 98 Oximetry Medical Decision Making - Medical Decision Making X-rays negative for acute fracture. Patient appears to have cyst formation top of her foot. Patient will follow-up with orthopedics return parameters were discussed. Disposition Clinical Impression: Right foot pain Disposition: HOME SELF-CARE Condition: Stable Instructions (If sedation given, give patient instructions): Arthralgia (ED) Additional Instructions: Please return to the Emergency Department if symptoms worsen or any other concerns. Prescriptions: Ibuprofen [Motrin] 600 mg PO Q8HR PRN #20 tab PRN Reason: Pain Is patient prescribed a controlled substance at d/c from ED?: No Referrals: Riana Mack MD [Primary Care Provider] - 1-2 days Joss Shin DPM [Doctor of Osteopathic Medicine] - 1-2 days Time of Disposition: 08:27
[2021-12-30] MEDS ORDERED: ACET/COD 300 MG/30 MG STARTER PACK 6 TAB BTL PO STA (08:25)
== END 2021-12-30 08:37 | disposition home or self-care (01) ==
LOC: EC 06:44
DX: E11.9 Type 2 diabetes mellitus without complications (principal); F17.200 Nicotine dependence, unspecified, uncomplicated; M79.671 Pain in right foot
CPT/HCPCS: 99283

== ENCOUNTER → 2022-09-30 | Outpatient (CLI) | payer OTHER ==
--- NOTE | 2022-09-30 19:27 | US ---
EXAMINATION TYPE: US carotid duplex BILAT DATE OF EXAM: 09/30/2022 COMPARISON: NONE CLINICAL HISTORY: R09.89 OTHER SYMPTOMS/SIGNS RESP. Pt states physician heard bruit on left side TECHNIQUE: Carotid duplex ultrasound examination. Indirect Doppler criteria was utilized. FINDINGS: EXAM MEASUREMENTS: RIGHT: Peak Systolic Velocity (PSV) cm/sec ----- Right CCA: 97.2 ----- Right ICA: 228 ----- Right ECA: 142 ICA/CCA ratio: 2.3 RIGHT: End Diastole cm/sec ----- Right CCA: 31.9 ----- Right ICA: 65.2 ----- Right ECA: 32.8 LEFT: Peak Systolic Velocity (PSV) cm/sec ----- Left CCA: 78.1 ----- Left ICA: 327 ----- Left ECA: 118 ICA/CCA ratio: 4.2 LEFT: End Diastole cm/sec ----- Left CCA: 32.6 ----- Left ICA: 108 ----- Left ECA: 23.7 VERTEBRALS (direction of flow): Right Vertebral: Antegrade Left Vertebral: Antegrade Rhythm: Normal CALL CENTER NURSE NOTES: Elevated velocities and abnormal ratios bilaterally, more on left side Attempted to call Dr's office with results, no answer IMPRESSION: Estimated Greater than 70% stenosis left ICA . Estimated 50-69% stenosis right ICA. Criteria for Assigning % of Stenosis / Diameter reduction (Estimation based on the indirect measurements of the internal carotid artery velocities (ICA PSV). 1. Normal (no stenosis)=ICA PSV < 125 cm/s: ratio < 2.0: ICA EDV<40 cm/s. 2. Less than 50% stenosis=ICA PSV < 125 cm/s: ratio < 2.0: ICA EDV<40 cm/s. 3. 50 to 69% stenosis=ICA PSV of 125 to 230 cm/s: ration 2.0 ? 4.0: ICA EDV 40-100 cm/s. 4. Greater than 70% stenosis to near occlusion= ICA PSV > 230 cm/s: ratio > 4.0: ICA EDV > 100 cm/s. 5. Near occlusion= ICA PSV velocities may be low or undetectable: variable ratio and ICA EDV. 6. Total occlusion=unable to detect flow.
--- NOTE | 2022-10-01 08:42 | MM ---
Reason for Exam: Screening (asymptomatic). Baseline mammogram. Patient History: Menarche at age 11. First Full-Term at age 20. Postmenopausal. Paternal grandmother had breast cancer, age 60. Risk Values: Megha 5 year model risk: 0.8%. NCI Lifetime model risk: 8.3%. Prior Study Comparison: Patient's first Mammogram. Tissue Density: The breast tissue is heterogeneously dense. This may lower the sensitivity of mammography. Findings: Analyzed By CAD. Benign-appearing calcifications bilaterally. There is no suspicious group of microcalcifications or new suspicious mass in either breast. Overall Assessment: Benign, BI-RAD 2 Management: Screening Mammogram of both breasts in 1 year. A clinical breast exam by your physician is recommended on an annual basis and results should be correlated with mammographic findings. [facility] will attempt to contact patient to return for supplemental views and ultrasound if indicated. Electronically signed and approved by: Giacomo Elizalde DO
== END | disposition home or self-care (01) ==
LOC: RADMAMWWP 15:37
PROVIDERS: ATTEND Family Medicine
DX: Z12.31 Encounter for screening mammogram for malignant neoplasm of breast (principal); I65.23 Occlusion and stenosis of bilateral carotid arteries; R09.89 Other specified symptoms and signs involving the circulatory and respiratory systems
CPT/HCPCS: 77067; 93880

== ENCOUNTER 2023-02-14 15:40 | Emergency (ER) | payer OTHER ==
[2023-02-14 15:58] VITALS: TEMP 98.5
--- NOTE | 2023-02-14 16:45 | XR ---
EXAMINATION TYPE: XR foot complete LT DATE OF EXAM: 02/14/2023 4:16 PM INDICATION: Patient age:Female; 47 years old; Reason for study: pain swelling; COMPARISON: None TECHNIQUE: The left foot was examined in the AP, oblique, and lateral projections. FINDINGS: No evidence of any acute osseous pathology. No evidence of soft tissue swelling. Joints are preserve d. Multifocal minimal degeneration of the interphalangeal joints. Mild soft tissue swelling of the se cond digit. No evidence of fracture. IMPRESSION: Mild second digit soft tissue swelling without evidence of fracture.
--- NOTE | 2023-02-14 17:21 | ED ---
General Adult HPI - General Source: patient, RN notes reviewed Mode of arrival: ambulatory Limitations: no limitations <Chayo Valenzuela - Last Filed: 02/14/23 17:18> <Brandon Heller - Last Filed: 02/14/23 19:05> - General Chief complaint: Extremity Problem,Nontraumatic Stated complaint: left toe pain Time Seen by Provider: 02/14/23 17:18 - History of Present Illness Initial comments: 47-year-old female female presents to the emergency department with a chief complaint of left toe pain. Patient reports left third digit pain that started yesterday while at work. She denies any injury or trauma. (Chayo Valenzuela) She states pain to the left second digit that started yesterday at work. No trauma. States that she feels as if it is swollen and out of place. (Brandon Heller) - Related Data Home Medications Medication Instructions Recorded Confirmed Lurasidone [Latuda] 40 mg PO HS 10/15/21 10/15/21 Sertraline HCl [Zoloft] 50 mg PO DAILY 10/15/21 10/15/21 Simvastatin [Zocor] 5 mg PO DAILY 10/15/21 10/15/21 metFORMIN HCL 500 mg PO BID 10/15/21 10/15/21 Previous Rx's Medication Instructions Recorded Ibuprofen [Motrin] 600 mg PO Q8HR PRN #20 tab 10/15/21 Orphenadrine [Norflex] 100 mg PO Q12H #14 tab 10/15/21 Ibuprofen [Motrin] 600 mg PO Q8HR PRN #20 tab 12/30/21 Acetaminophen [Tylenol Extra 500 mg PO Q6HR #30 tablet 02/14/23 Strength] Allergies Allergy/AdvReac Type Severity Reaction Status Date / Time No Known Allergies Allergy Verified 12/30/21 06:50 Review of Systems ROS Other: All systems not noted in ROS Statement are negative. <Chayo Valenzuela - Last Filed: 02/14/23 17:18> ROS Other: All systems not noted in ROS Statement are negative. <Brandon Heller - Last Filed: 02/14/23 19:05> ROS Statement: Those systems with pertinent positive or pertinent negative responses have been documented in the HPI. Past Medical History Past Medical History: Diabetes Mellitus Additional Past Medical History / Comment(s): Pt states she may be diabetic, no current prescribed diabetic medications History of Any Multi-Drug Resistant Organisms: None Reported Past Surgical History: Section Past Psychological History: Anxiety, Depression Smoking Status: Current every day smoker Past Alcohol Use History: None Reported Past Drug Use History: None Reported <Chayo Valenzuela - Last Filed: 02/14/23 17:18> General Exam Limitations: no limitations <Chayo Valenzuela - Last Filed: 02/14/23 17:18> Limitations: no limitations General appearance: alert, in no apparent distress Head exam: Present: atraumatic, normocephalic Eye exam: Present: normal appearance Respiratory exam: Present: normal lung sounds bilaterally Cardiovascular Exam: Present: regular rate, normal rhythm Extremities exam: Present: other (Strength and sensation bilateral lower extremities 5/5. DP/PT pulses 2+. Left second toe shows no significant swelling, no erythema, or edema. Able to actively flex and extend the toe without significant difficulty. Ambulates without difficulty.) Neurological exam: Present: alert, oriented X3 Skin exam: Present: warm, dry <Brandon Heller - Last Filed: 02/14/23 19:05> - General Exam Comments Initial Comments: Visual Physical Exam Vital signs reviewed General: Well-appearing, nontoxic, no acute distress. Head: Normocephalic, atraumatic Eyes: PERRLA, EOMI ENT: Airway patent Chest: Nonlabored breathing Skin: No visual rash, normal skin tone Neuro: Alert and oriented 3 Musculoskeletal: No gross abnormalities (Chayo Valenzuela) Course Vital Signs 02/14/23 02/14/23 15:55 18:54 Temperature 98.5 F Pulse Rate 100 84 Respiratory 20 18 Rate Blood Pressure 101/69 112/64 O2 Sat by Pulse 98 97 Oximetry Medical Decision Making <Brandon Heller - Last Filed: 02/14/23 19:05> - Medical Decision Making Was pt. sent in by a medical professional or institution (, PA, COATER HELPER, urgent care, hospital, or half-way...) When possible be specific @ -No Did you speak to anyone other than the patient for history (EMS, parent, family, police, friend...)? What history was obtained from this source @ -No Did you review nursing and triage notes (agree or disagree)? Why? @ -I reviewed and agree with nursing and triage notes Were old charts reviewed (outside hosp., previous admission, EMS record, old EKG, old radiological studies, urgent care reports/EKG's, half-way records)? Report findings @ -No old charts were reviewed Differential Diagnosis (chest pain, altered mental status, abdominal pain women, abdominal pain men, vaginal bleeding, weakness, fever, dyspnea, syncope, headache, dizziness, GI bleed, back pain, seizure, CVA, palpatations, mental health, musculoskeletal)? @ -Gout, acute fracture, cellulitis, osteomyelitis. This is not meant to be an all-inclusive list. EKG interpreted by me (3pts min.). @ -None X-rays interpreted by me (1pt min.). @ -X-ray showed no acute fracture. CT interpreted by me (1pt min.). @ -None done U/S interpreted by me (1pt. min.). @ -None done What testing was considered but not performed or refused? (CT, X-rays, U/S, labs)? Why? @ -None What meds were considered but not given or refused? Why? @ -None Did you discuss the management of the patient with other professionals (professionals i.e. , PA, COATER HELPER, lab, RT, psych nurse, rn social services, paver, teacher, tactical/mobile watch officer, case picker)? Give summary @ -No Was smoking cessation discussed for >3mins.? @ -No Was critical care preformed (if so, how long)? @ -No Were there social determinants of health that impacted care today? How? (Homelessness, low income, unemployed, alcoholism, drug addiction, transportation, low edu. Level, literacy, decrease access to med. care, longterm, rehab)? @ -No Was there de-escalation of care discussed even if they declined (Discuss DNR or withdrawal of care, Hospice)? DNR status @ -No What co-morbidities impacted this encounter? (DM, HTN, Smoking, COPD, CAD, Cancer, CVA, ARF, Chemo, Hep., AIDS, mental health diagnosis, sleep apnea, morbid obesity)? @ -None Was patient admitted / discharged? Hospital course, mention meds given and route, prescriptions, significant lab abnormalities, going to OR and other pertinent info. @ -Discharged. Imaging studies as above. No Evidence of infection at this time. Provided Toradol with improvement of pain. Toe barry taped. Provided starter pack of Motrin and prescribed Tylenol. Advised follow-up with PCP. Discharged in stable condition. Undiagnosed new problem with uncertain prognosis? @ -No Drug Therapy requiring intensive monitoring for toxicity (Heparin, Nitro, Insulin, Cardizem)? @ -No Were any procedures done? @ -No Diagnosis/symptom? @ -Toe sprain Acute, or Chronic, or Acute on Chronic? @ -Acute Uncomplicated (without systemic symptoms) or Complicated (systemic symptoms)? @ -Uncomplicated Side effects of treatment? @ -No Exacerbation, Progression, or Severe Exacerbation? @ -No Poses a threat to life or bodily function? How? (Chest pain, [place], [place], pneumonia, PE, COPD, DKA, ARF, appy, cholecystitis, CVA, Diverticulitis, Homicidal, Suicidal, threat to staff... and all critical care pts) @ -No (Brandon Heller) Disposition <Chayo Valenzuela - Last Filed: 02/14/23 17:18> Is patient prescribed a controlled substance at d/c from ED?: No Time of Disposition: 18:28 <Brandon Heller - Last Filed: 02/14/23 19:05> Clinical Impression: Toe sprain Disposition: HOME SELF-CARE Condition: Good Additional Instructions: Please return to the Emergency Department if symptoms worsen or any other concerns. Rest ice compression and elevation as needed for swelling and pain. Motrin and Tylenol for pain. Follow up with PCP. Prescriptions: Acetaminophen [Tylenol Extra Strength] 500 mg PO Q6HR #30 tablet Referrals: None,Stated [REFERRING] - 1-2 days
[2023-02-14] MEDS ORDERED: KETOROLAC 15 MG/ML 1 ML VIAL IVP STA (18:33)
[2023-02-14] MEDS ORDERED: IBUPROFEN 600 MG STARTER PACK 4 TAB BTL PO STA (18:45)
[2023-02-14 18:55] VITALS: BP 112/64; PULSE 84; RESP 18
== END 2023-02-14 19:05 | disposition home or self-care (01) ==
LOC: EC 15:40
DX: S93.509A Unspecified sprain of unspecified toe(s), initial encounter (principal); E11.9 Type 2 diabetes mellitus without complications; F41.9 Anxiety disorder, unspecified; F32.A Depression, unspecified; F17.200 Nicotine dependence, unspecified, uncomplicated; Z79.84 Long term (current) use of oral hypoglycemic drugs; Z79.899 Other long term (current) drug therapy; X58.XXXA Exposure to other specified factors, initial encounter; Y99.0 Civilian activity done for income or pay
CPT/HCPCS: 73630; 99283; 96374; J1885

== ENCOUNTER 2024-06-24 06:18 | Emergency (ER) | payer OTHER ==
--- NOTE | 2024-06-24 07:48 | ED ---
General Adult HPI - General Chief complaint: Psychiatric Symptoms Stated complaint: Mental Health Time Seen by Provider: 06/24/24 07:22 Source: patient, RN notes reviewed Mode of arrival: ambulatory Limitations: no limitations - History of Present Illness Initial comments: Patient is a 48-year-old female present to the emergency department with concern for desiring mental health evaluation. Patient states she has been more depressed and anxious lately. Patient is unclear if she has thoughts of self- harm. No plan. No homicidal thoughts. No hallucinations. No alcohol or street drug use. Patient is still taking her medications. Patient has not been sleeping as well lately. - Related Data Home Medications Medication Instructions Recorded Confirmed Sertraline HCl [Zoloft] 50 mg PO HS 10/15/21 06/24/24 Atorvastatin [Lipitor] 20 mg PO HS 06/24/24 06/24/24 Lurasidone [Latuda] 40 mg PO HS 06/24/24 06/24/24 Pioglitazone [Actos] 15 mg PO DAILY 06/24/24 06/24/24 lisinopriL [Zestril] 5 mg PO DAILY 06/24/24 06/24/24 metFORMIN HCL ER [Glucophage XR] 500 mg PO BID 06/24/24 06/24/24 Allergies Allergy/AdvReac Type Severity Reaction Status Date / Time No Known Allergies Allergy Verified 06/24/24 10:14 Review of Systems ROS Statement: Those systems with pertinent positive or pertinent negative responses have been documented in the HPI. ROS Other: All systems not noted in ROS Statement are negative. Constitutional: Denies: fever Eyes: Denies: eye pain ENT: Denies: ear pain Respiratory: Denies: cough, dyspnea Cardiovascular: Denies: chest pain Psychiatric: Reports: as per HPI, anxiety, depression Past Medical History Past Medical History: Diabetes Mellitus Additional Past Medical History / Comment(s): Pt states she may be diabetic, no current prescribed diabetic medications History of Any Multi-Drug Resistant Organisms: None Reported Past Surgical History: Section Past Psychological History: Anxiety, Depression Smoking Status: Current every day smoker Past Alcohol Use History: None Reported Past Drug Use History: None Reported General Exam Limitations: no limitations General appearance: alert, in no apparent distress Head exam: Present: normocephalic Eye exam: Present: normal appearance Neck exam: Present: normal inspection Respiratory exam: Present: normal lung sounds bilaterally Cardiovascular Exam: Present: regular rate, normal rhythm GI/Abdominal exam: Present: soft. Absent: tenderness Extremities exam: Present: normal inspection Neurological exam: Present: alert Psychiatric exam: Present: normal affect, normal mood Skin exam: Present: normal color Course Vital Signs 06/24/24 06:38 Temperature 98.5 F Pulse Rate 92 Respiratory 18 Rate Blood Pressure 145/89 O2 Sat by Pulse 98 Oximetry Medical Decision Making - Medical Decision Making Was pt. sent in by a medical professional or institution (, PA, RATE SUPERVISOR, urgent care, hospital, or care home...) When possible be specific @ -No Did you speak to anyone other than the patient for history (EMS, parent, family, police, friend...)? What history was obtained from this source @ -No Did you review nursing and triage notes (agree or disagree)? Why? @ -I reviewed and agree with nursing and triage notes Were old charts reviewed (outside hosp., previous admission, EMS record, old EKG, old radiological studies, urgent care reports/EKG's, care home records)? Report findings @ -No old charts were reviewed Differential Diagnosis (chest pain, altered mental status, abdominal pain women, abdominal pain men, vaginal bleeding, weakness, fever, dyspnea, syncope, headache, dizziness, GI bleed, back pain, seizure, CVA, palpatations, mental health, musculoskeletal)? @ -Differential Mental Health Depression, anxiety, bipolar, psychosis, schizophrenia, borderline personality, situational depression, adjustment disorder, behavioral disorder, brain tumor, malingering, substance abuse, encephalopathy, medication reaction, dementia, hypothyroidism, degenerative neurologic disorder, lupus.... This is not meant to be all-inclusive list EKG interpreted by me (3pts min.). @ -As above X-rays interpreted by me (1pt min.). @ -None done CT interpreted by me (1pt min.). @ -None done U/S interpreted by me (1pt. min.). @ -None done What testing was considered but not performed or refused? (CT, X-rays, U/S, labs)? Why? @ -None What meds were considered but not given or refused? Why? @ -None Did you discuss the management of the patient with other professionals (professionals i.e. , PA, RATE SUPERVISOR, lab, RT, psych nurse, social media community manager, contracts specialist, teacher, hazard mitigation officer, case planner)? Give summary @ -Case was discussed with mental health worker who did discuss case with psychiatrist Was smoking cessation discussed for >3mins.? @ -No Was critical care preformed (if so, how long)? @ -No Were there social determinants of health that impacted care today? How? (Homelessness, low income, unemployed, alcoholism, drug addiction, transportation, low edu. Level, literacy, decrease access to med. care, longterm, rehab)? @ -No Was there de-escalation of care discussed even if they declined (Discuss DNR or withdrawal of care, Hospice)? DNR status @ -No What co-morbidities impacted this encounter? (DM, HTN, Smoking, COPD, CAD, Cancer, CVA, ARF, Chemo, Hep., AIDS, mental health diagnosis, sleep apnea, morbid obesity)? @ -None Was patient admitted / discharged? Hospital course, mention meds given and route, prescriptions, significant lab abnormalities, going to OR and other pertinent info. @ -Patient presents with depression/anxiety. Patient did safety plan and will be discharged. Medication adjustments per psychiatry. Patient reevaluated and denies suicidal ideation and does contract for safety. Patient does have follow-up planned. Patient advised to return for worsening symptoms Undiagnosed new problem with uncertain prognosis? @ -No Drug Therapy requiring intensive monitoring for toxicity (Heparin, Nitro, Insulin, Cardizem)? @ -No Were any procedures done? @ -No Diagnosis/symptom? @ -Depression Acute, or Chronic, or Acute on Chronic? @ -Acute Uncomplicated (without systemic symptoms) or Complicated (systemic symptoms)? @ -Default Side effects of treatment? @ -No Exacerbation, Progression, or Severe Exacerbation? @ -No Poses a threat to life or bodily function? How? (Chest pain, USA, MD, pneumonia, PE, COPD, DKA, ARF, appy, cholecystitis, CVA, Diverticulitis, Homicidal, Suicidal, threat to staff... and all critical care pts) @ -No - Lab Data Lab Results 06/24/24 Range/Units 08:05 Urine Opiates Screen Not Detected (NotDetected) Ur Oxycodone Screen Not Detected (NotDetected) Urine Methadone Screen Not Detected (NotDetected) Ur Barbiturates Screen Not Detected (NotDetected) U Tricyclic Antidepress Not Detected (NotDetected) Ur Phencyclidine Scrn Not Detected (NotDetected) Ur Amphetamines Screen Not Detected (NotDetected) U Methamphetamines Scrn Not Detected (NotDetected) U Benzodiazepines Scrn Not Detected (NotDetected) Urine Cocaine Screen Not Detected (NotDetected) U Marijuana (THC) Screen Not Detected (NotDetected) Disposition Clinical Impression: Depression Disposition: HOME SELF-CARE Condition: Stable Instructions (If sedation given, give patient instructions): Bipolar Disorder (ED), Depression (ED), Help Prevent Suicide (ED) Additional Instructions: Please follow-up with mental health services as directed. Please follow-up with primary care physician in the next day or 2 for recheck. Return for thoughts of self-harm, worsening symptoms or other concerns. Is patient prescribed a controlled substance at d/c from ED?: No Referrals: Riana Mack MD [Primary Care Provider] - 1-2 days Time of Disposition: 10:52
[2024-06-24 09:04] LABS: Amphetamine Screen,Urine Not Detected (NotDetected); Barbiturate Screen,Urine Not Detected (NotDetected); Benzodiazepines Screen,Urine Not Detected (NotDetected); Cocaine Screen,Urine Not Detected (NotDetected); Methadone Screen, Urine Not Detected (NotDetected); Opiate Screen,Urine Not Detected (NotDetected); Oxycodone Screen, Urine Not Detected (NotDetected); Phencyclidine Screen,Urine Not Detected (NotDetected); Tricyclic Antidepressant,Urine Not Detected (NotDetected); Urn Cannabinoid Scrn Not Detected (NotDetected)
[2024-06-24 11:05] VITALS: BP 128/78; PULSE 74; RESP 16; TEMP 98
== END 2024-06-24 11:04 | disposition home or self-care (01) ==
LOC: EC 06:18
CPT/HCPCS: 80306; 82075; 99284

== ENCOUNTER 2024-11-11 23:44 | Emergency (ER) | payer OTHER ==
[2024-11-11 23:48] VITALS: BP 127/85; PULSE 92; RESP 18; TEMP 97.4
[2024-11-12] MEDS ORDERED: SODIUM CHLORIDE 0.9% 1,000 ML IV ONE (00:29)
--- NOTE | 2024-11-12 00:30 | ED ---
Recheck HPI - General Chief Complaint: Recheck/Abnormal Lab/Rx Stated Complaint: altered mental status Time Seen by Provider: 11/12/24 00:19 Source: patient, RN notes reviewed Mode of arrival: ambulatory Limitations: no limitations - History of Present Illness Initial Comments: This is a 49-year-old female who presents to the emergency department for con fusion and problems sleeping. Patient is on Latuda and Zoloft. States that a couple of weeks ago [facility] increased the dose. She is unsure why as she was doing well. Family states that 7 to 10 days later she started to act abnormal. She was confused and forgetting things. Unsure if it is related to the medication increase. States that she is constantly feeling drugged and fatigued. Her mood is fine. Denies any suicidal or homicidal ideations. - Related Data Home Medications Medication Instructions Recorded Confirmed Sertraline HCl [Zoloft] 50 mg PO HS 10/15/21 06/24/24 Atorvastatin [Lipitor] 20 mg PO HS 06/24/24 06/24/24 Lurasidone [Latuda] 40 mg PO HS 06/24/24 06/24/24 Pioglitazone [Actos] 15 mg PO DAILY 06/24/24 06/24/24 lisinopriL [Zestril] 5 mg PO DAILY 06/24/24 06/24/24 metFORMIN HCL ER [Glucophage XR] 500 mg PO BID 06/24/24 06/24/24 Allergies Allergy/AdvReac Type Severity Reaction Status Date / Time No Known Allergies Allergy Verified 11/11/24 23:48 Review of Systems ROS Statement: Those systems with pertinent positive or pertinent negative responses have been documented in the HPI. ROS Other: All systems not noted in ROS Statement are negative. Past Medical History Past Medical History: Diabetes Mellitus Additional Past Medical History / Comment(s): Pt states she may be diabetic, no current prescribed diabetic medications History of Any Multi-Drug Resistant Organisms: None Reported Past Surgical History: Section Past Psychological History: Anxiety, Depression Smoking Status: Current every day smoker Past Alcohol Use History: None Reported Past Drug Use History: None Reported General Exam Limitations: no limitations General appearance: alert, in no apparent distress Head exam: Present: atraumatic, normocephalic, normal inspection Eye exam: Present: normal appearance, PERRL, EOMI. Absent: scleral icterus, conjunctival injection, periorbital swelling Respiratory exam: Present: normal lung sounds bilaterally. Absent: respiratory distress, wheezes, rales, rhonchi, stridor Cardiovascular Exam: Present: regular rate, normal rhythm Neurological exam: Present: alert, oriented X3, CN II-XII intact Psychiatric exam: Present: flat affect. Absent: homicidal ideation, suicidal ideation Skin exam: Present: warm, dry, intact, normal color. Absent: rash Course Vital Signs 11/11/24 23:45 Temperature 97.4 F L Pulse Rate 92 Respiratory 18 Rate Blood Pressure 127/85 O2 Sat by Pulse 96 Oximetry Medical Decision Making - Medical Decision Making This is a 49-year-old female who presents to the emergency department for weakness and fatigue. Was pt. sent in by a medical professional or institution? @ -No Did you speak to anyone other than the patient for history? @ -No Did you review nursing and triage notes? @ -Yes, and I agree, it is accurate with regards to the patient's symptoms. Were old charts reviewed? @ -No Differential Diagnosis? @ -Differential Weakness: Hypoglycemia, shock, sepsis, hyponatremia, anemia, infection, NC, ETOH, adverse medicine reaction, overdose, stroke, this is not meant to be an all-inclusive list. EKG interpreted by me (3pts min.)? @ -Not obtained X-rays interpreted by me (1pt min.)? @ -Not obtained CT interpreted by me (1pt min.)? @ -Not obtained U/S interpreted by me (1pt. min.)? @ -Not obtained What testing was considered but not performed? (CT, X-rays, U/S, labs)? Why? @ -Discussion of a CT scan of the brain, however patient refused. What meds were considered but not given? Why? @ -Not obtained Did you discuss the management of the patient with other professionals? @ -No Did you reconcile home meds? @ -No Was smoking cessation discussed for >3mins.? @ -No Was critical care preformed (if so, how long)? @ -No Were there social determinants of health that impacted care today? How? (Homelessness, low income, unemployed, alcoholism, drug addiction, transportation, low edu. Level, literacy, decrease access to med. care, [facility], rehab)? @ -No Was there de-escalation of care discussed even if they declined? (Discuss DNR or withdrawal of care, Hospice)? @ -No What co-morbidities impacted this encounter? (DM, HTN, Smoking, COPD, CAD, Cancer, CVA, Hep., AIDS, mental health diagnosis, sleep apnea, morbid obesity)? @ -Smoking, DM, mental health diagnosis Was patient admitted / discharged? @ -When I went to go speak with the patient, she and her believed her symptoms to be related to the medication increase. I had however advised checking labs and a urine to see if anything else such as an infection was potentially contributing to this. However, immediately after labs were drawn patient states that she wanted to leave. Patient subsequently signed AMA forms and left with her . I did follow-up on the lab work which demonstrated mild leukocytosis with a white blood cell count of 12 and a mildly elevated lactic acid of 2.3. There was also consideration of a CT scan of the brain, however patient refused. Undiagnosed new problem with uncertain prognosis? @ -None Drug Therapy requiring intensive monitoring for toxicity (Heparin, Nitro, Insulin, Cardizem)? @ -None Were any procedures done? @ -None Diagnosis/symptom? @ -Fatigue, weakness Acute, or Chronic, or Acute on Chronic? @ -Acute Uncomplicated (without systemic symptoms) or Complicated (systemic symptoms)? @ -Uncomplicated Side effects of treatment? @ -None Exacerbation, Progression, or Severe Exacerbation] @ -Not applicable Poses a threat to life or bodily function? @ -Unclear - Lab Data Result diagrams: 11/12/24 00:36 11/12/24 00:36 Lab Results 11/12/24 11/12/24 11/12/24 Range/Units 00:32 00:36 00:36 WBC 12.0 H (3.8-10.6) k/uL RBC 4.65 (3.80-5.40) m/uL Hgb 13.7 (11.4-16.0) gm/dL Hct 41.9 (34.0-46.0) % MCV 90.0 (80.0-100.0) fL MCH 29.5 (25.0-35.0) pg MCHC 32.8 (31.0-37.0) g/dL RDW 13.3 (11.5-15.5) % Plt Count 344 (150-450) k/uL MPV 7.0 Neutrophils % 62 % Lymphocytes % 31 % Monocytes % 3 % Eosinophils % 2 % Basophils % 0 % Neutrophils # 7.4 (1.3-7.7) k/uL Lymphocytes # 3.7 (1.0-4.8) k/uL Monocytes # 0.4 (0-1.0) k/uL Eosinophils # 0.3 (0-0.7) k/uL Basophils # 0.0 (0-0.2) k/uL PT 9.7 L (10.0-12.5) sec INR 0.9 (<1.2) APTT 22.9 (22.0-30.0) sec Sodium (137-145) mmol/L Potassium (3.5-5.1) mmol/L Chloride (98-107) mmol/L Carbon Dioxide (22-30) mmol/L Anion Gap mmol/L BUN (7-17) mg/dL Creatinine (0.52-1.04) mg/dL Est GFR (CKD-EPI)AfAm (>60 ml/min/1.73 sqM) Est GFR (CKD-EPI)NonAf (>60 ml/min/1.73 sqM) Glucose (74-99) mg/dL POC Glucose (mg/dL) 160 H (70-110) mg/dL POC Glu Grab Jack Man BRIAN Diez Lactic Ac Sepsis Rflx Plasma Lactic Acid David (0.7-2.0) mmol/L Calcium (8.4-10.2) mg/dL Magnesium (1.6-2.3) mg/dL Total Bilirubin (0.2-1.3) mg/dL AST (14-36) U/L ALT (4-34) U/L Alkaline Phosphatase (38-126) U/L Troponin I (0.000-0.034) ng/mL Total Protein (6.3-8.2) g/dL Albumin (3.5-5.0) g/dL 11/12/24 11/12/24 11/12/24 Range/Units 00:36 00:36 00:36 WBC (3.8-10.6) k/uL RBC (3.80-5.40) m/uL Hgb (11.4-16.0) gm/dL Hct (34.0-46.0) % MCV (80.0-100.0) fL MCH (25.0-35.0) pg MCHC (31.0-37.0) g/dL RDW (11.5-15.5) % Plt Count (150-450) k/uL MPV Neutrophils % % Lymphocytes % % Monocytes % % Eosinophils % % Basophils % % Neutrophils # (1.3-7.7) k/uL Lymphocytes # (1.0-4.8) k/uL Monocytes # (0-1.0) k/uL Eosinophils # (0-0.7) k/uL Basophils # (0-0.2) k/uL PT (10.0-12.5) sec INR (<1.2) APTT (22.0-30.0) sec Sodium 137 (137-145) mmol/L Potassium 3.8 (3.5-5.1) mmol/L Chloride 105 (98-107) mmol/L Carbon Dioxide 23 (22-30) mmol/L Anion Gap 9 mmol/L BUN 5 L (7-17) mg/dL Creatinine 0.49 L (0.52-1.04) mg/dL Est GFR (CKD-EPI)AfAm >90 (>60 ml/min/1.73 sqM) Est GFR (CKD-EPI)NonAf >90 (>60 ml/min/1.73 sqM) Glucose 146 H (74-99) mg/dL POC Glucose (mg/dL) (70-110) mg/dL POC Glu Grab Jack Man ID Lactic Ac Sepsis Rflx Plasma Lactic Acid David 2.3 H* (0.7-2.0) mmol/L Calcium 9.6 (8.4-10.2) mg/dL Magnesium 1.8 (1.6-2.3) mg/dL Total Bilirubin 0.5 (0.2-1.3) mg/dL AST 24 (14-36) U/L ALT 20 (4-34) U/L Alkaline Phosphatase 124 (38-126) U/L Troponin I <0.012 (0.000-0.034) ng/mL Total Protein 7.6 (6.3-8.2) g/dL Albumin 4.4 (3.5-5.0) g/dL 11/12/24 Range/Units 01:04 WBC (3.8-10.6) k/uL RBC (3.80-5.40) m/uL Hgb (11.4-16.0) gm/dL Hct (34.0-46.0) % MCV (80.0-100.0) fL MCH (25.0-35.0) pg MCHC (31.0-37.0) g/dL RDW (11.5-15.5) % Plt Count (150-450) k/uL MPV Neutrophils % % Lymphocytes % % Monocytes % % Eosinophils % % Basophils % % Neutrophils # (1.3-7.7) k/uL Lymphocytes # (1.0-4.8) k/uL Monocytes # (0-1.0) k/uL Eosinophils # (0-0.7) k/uL Basophils # (0-0.2) k/uL PT (10.0-12.5) sec INR (<1.2) APTT (22.0-30.0) sec Sodium (137-145) mmol/L Potassium (3.5-5.1) mmol/L Chloride (98-107) mmol/L Carbon Dioxide (22-30) mmol/L Anion Gap mmol/L BUN (7-17) mg/dL Creatinine (0.52-1.04) mg/dL Est GFR (CKD-EPI)AfAm (>60 ml/min/1.73 sqM) Est GFR (CKD-EPI)NonAf (>60 ml/min/1.73 sqM) Glucose (74-99) mg/dL POC Glucose (mg/dL) (70-110) mg/dL POC Glu Grab Jack Man ID Lactic Ac Sepsis Rflx Y Plasma Lactic Acid David (0.7-2.0) mmol/L Calcium (8.4-10.2) mg/dL Magnesium (1.6-2.3) mg/dL Total Bilirubin (0.2-1.3) mg/dL AST (14-36) U/L ALT (4-34) U/L Alkaline Phosphatase (38-126) U/L Troponin I (0.000-0.034) ng/mL Total Protein (6.3-8.2) g/dL Albumin (3.5-5.0) g/dL Disposition Clinical Impression: Fatigue, Sleeping difficulties, Nicotine dependence Disposition: LEFT AGAINST MEDICAL ADVICE Referrals: Riana Mack MD [Primary Care Provider] - 1-2 days
[2024-11-12 00:33] LABS: Glucose,Whole Blood 160 mg/dL (70-110)
[2024-11-12 00:50] LABS: Basophils % (A) 0 %; Eosinophils # (A) 0.3 k/uL (0-0.7); Eosinophils % (A) 2 %; HCT 41.9 % (34.0-46.0); HGB 13.7 gm/dL (11.4-16.0); Lymphocytes # (A) 3.7 k/uL (1.0-4.8); Lymphocytes % (A) 31 %; MCH 29.5 pg (25.0-35.0); MCHC 32.8 g/dL (31.0-37.0); Monocytes # (A) 0.4 k/uL (0-1.0); Monocytes % (A) 3 %; Neutrophils # (A) 7.4 k/uL (1.3-7.7); Neutrophils % (A) 62 %; Platelet Count 344 k/uL (150-450); RBC 4.65 m/uL (3.80-5.40); RDW 13.3 % (11.5-15.5)
[2024-11-12 00:58] LABS: INR 0.9 (<1.2); Partial Thromboplastin Time 22.9 sec (22.0-30.0); Prothrombin Time 9.7 sec (10.0-12.5)
[2024-11-12 01:02] LABS: ALT 20 U/L (4-34); AST 24 U/L (14-36); African American GFR (CKD) >90 (>60 ml/min/1.73 sqM); Albumin 4.4 g/dL (3.5-5.0); Alkaline Phosphatase 124 U/L (38-126); Anion Gap 9 mmol/L; Blood Urea Nitrogen 5 mg/dL (7-17); Calcium 9.6 mg/dL (8.4-10.2); Carbon Dioxide 23 mmol/L (22-30); Chloride 105 mmol/L (98-107); Glucose 146 mg/dL (74-99); Magnesium 1.8 mg/dL (1.6-2.3); Non-African American GFR(CKD) >90 (>60 ml/min/1.73 sqM); Potassium 3.8 mmol/L (3.5-5.1); Sodium 137 mmol/L (137-145); Total Bilirubin 0.5 mg/dL (0.2-1.3); Total Protein 7.6 g/dL (6.3-8.2)
== END 2024-11-12 00:52 | disposition left against medical advice (07) ==
LOC: EC 23:44
DX: R53.83 Other fatigue (principal); G47.9 Sleep disorder, unspecified; R53.1 Weakness; F17.200 Nicotine dependence, unspecified, uncomplicated; Z53.29 Procedure and treatment not carried out because of patient's decision for other reasons
CPT/HCPCS: 36415; 80053; 83605; 83735; 84484; 85025; 85610; 85730; 99284